=== PATIENT | female | born 1995 | race Caucasian/White ===

== ENCOUNTER 2016-07-22 08:35 | Emergency (ER) | payer OTHER, SELFPAY ==
[2016-07-22 08:46] VITALS: BP 119/83; O2SAT 99
[2016-07-22] MEDS ORDERED: TYLENOL 325 MG PO ONE (09:11)
[2016-07-22] MEDS ORDERED: TYLENOL 325 MG ONE (09:13)
--- NOTE | 2016-07-22 09:24 | ERPHSYRPT ---
- History of Present Illness Time Seen by Provider: 07/22/16 08:43 Source: patient Patient Subjective Stated Complaint: sore thraot/earache for 3 days Triage Nursing Assessment: c/o sore throat and earache (rt worse than lt) for past 3 days. questionable fever. red thraot noted. green draiange from rt ears. took left over amoxicillin Physician History: CC: sore throat Hx: 21 y/o healthy pt with no local doctor. She has 3 day hx of sore throat, ear pressure, rhinorrhea. Mild cough. Had some green drng from right ear last night. No fever or chills. States not . Took 3 days of left over amoxil and has not gotten better so came to ER. Timing/Duration: day(s) (3) Cough Quality/Degree: mild Allergies/Adverse Reactions: No Known Drug Allergies Allergy (Unverified 07/22/16 08:46) Home Medications: No Home Meds 1 ea UD 07/22/16 [History] Hx Tetanus, Diphtheria Vaccination/Date Given: Yes Hx Influenza Vaccination/Date Given: No Hx Pneumococcal Vaccination/Date Given: No Immunizations Up to Date: Yes - Review of Systems Constitutional: Malaise, No Fever, No Chills Eyes: No Symptoms Ears, Nose, & Throat: Ear Pain, Ear Discharge, Nose Congestion, Throat Pain Respiratory: Cough Abdominal/Gastrointestinal: No Vomiting, No Diarrhea Skin: No Rash - Past Medical History Pertinent Past Medical History: No - Past Surgical History Past Surgical History: No - Social History Smoking Status: Never smoker Exposure to second hand smoke: Yes Drug Use: none Patient Lives Alone: No - Female History Hx Last Menstrual Period: 4 weeks Hx Now: No - Nursing Vital Signs Nursing Vital Signs: Initial Vital Signs Temperature 98.2 F Temperature Source Oral Pulse Rate 90 Respiratory Rate 18 Blood Pressure [Right Arm] 119/83 Pain Intensity 8 - Physical Exam General Appearance: alert Eye Exam: PERRL/EOMI Ears, Nose, Throat Exam: TMs normal (normal landmarks, no erythema, no canal erythema, no pain with movement of the pinna), moist mucous membranes, pharyngeal erythema, No tonsillar exudate Neck Exam: normal inspection, non-tender, supple Respiratory Exam: normal breath sounds, lungs clear Cardiovascular Exam: regular rate/rhythm Gastrointestinal/Abdomen Exam: soft, No tenderness, No distention Back Exam: normal inspection, normal range of motion Extremity Exam: normal inspection, normal range of motion Neurologic Exam: alert, oriented x 3, cooperative Skin Exam: warm, dry, rash (bug bite arm) SpO2: 99 Oxygen Delivery: Room Air - Course Nursing assessment & vital signs reviewed: Yes Ordered Tests: Active Orders 24 hr Category Date Time Status PO Popsicle STAT Care 07/22/16 09:11 Active STREP SCREEN-BETA A Stat Lab 07/22/16 09:11 Completed Medication Summary Discontinued Medications Generic Name Dose Route Start Last Admin Trade Name Nika PRN Reason Stop Dose Admin Acetaminophen 650 mg 07/22/16 09:11 07/22/16 09:14 Tylenol 325 Mg PO 07/22/16 09:12 650 mg STAT ONE Administration Acetaminophen Confirm 07/22/16 09:13 Tylenol 325 Mg Administered 07/22/16 09:14 Dose 650 mg .ROUTE .STK-MED ONE Lab/Rad Data: Laboratory Results 07/22/16 Range/Units 09:11 Streptococcus Screen POSITIVE (Negative) - Progress Progress Note: 07/22/16 09:24 Discussed empiric abtx vs strep test and only treating if positive. The appears to be viral URI. 07/22/16 09:46 Strep positive. Will Rx amoxil. She declines injection. Symptom treatment encouraged. Counseled pt/family regarding: lab results, diagnosis, need for follow-up - Departure Time of Disposition: 09:47 Departure Disposition: Home Clinical Impression: Strep pharyngitis Condition: Stable Critical Care Time: No Referrals: DOCTOR,NO FAMILY [Primary Care Provider] - Instructions: Strep Throat Additional Instructions: SORE THROAT 1. If you are prescribed antibiotics, you should finish the entire prescription as directed. 2. Many sore throats are caused by viruses and antibiotics will not help. 3. Acetaminophen or Ibuprofen as directed for fever or discomfort. 4. Cool liquids may help the pain of sore throat. Rx amoxil until gone. Prescriptions: Amoxicillin [Amoxil] 1 cap PO TID #30 capsule
[2016-07-22 09:53] VITALS: PULSE 84
== END 2016-07-22 09:50 | disposition home or self-care (01) ==
LOC: ED 08:35
DX: J02.0 Streptococcal pharyngitis (principal)
CPT/HCPCS: 87430; 99283; A9270-GY

== ENCOUNTER 2017-02-01 09:36 | Emergency (ER) | payer OTHER, SELFPAY ==
[2017-02-01 09:51] VITALS: O2SAT 97
--- NOTE | 2017-02-01 10:27 | ERPHSYRPT ---
- History of Present Illness Time Seen by Provider: 02/01/17 10:08 Source: patient Exam Limitations: no limitations Patient Subjective Stated Complaint: sore throat and both ears aching for two days Triage Nursing Assessment: to room per self. skin w/d, color normal. mouth moist. denies fever. Physician History: The patient is a 22-year-old female with her grandmother complaining of a sore throat and ear aches for one to 2 days. She denies fever or chills. She denies cough. She denies a stuffy nose or nasal congestion. Timing/Duration: gradual onset Severity: mild ENT Location: ear (R), ear (L), throat Prearrival Treatment: no prearrival treatment Modifying Factors: Improves With: nothing Associated Symptoms: ear pain (R), ear pain (L), sore throat, No cough, No nasal congestion/drainage, No ringing of ears Allergies/Adverse Reactions: No Known Drug Allergies Allergy (Verified 02/01/17 09:48) Home Medications: No Home Meds [No Home Meds] 1 [facility] UD 07/22/16 [History] Hx Tetanus, Diphtheria Vaccination/Date Given: No Hx Influenza Vaccination/Date Given: No Hx Pneumococcal Vaccination/Date Given: No - Review of Systems Constitutional: No Fever, No Chills Eyes: No Symptoms Ears, Nose, & Throat: Ear Pain, Throat Pain, No Nose Discharge, No Hoarse Respiratory: No Cough, No Dyspnea Cardiac: No Chest Pain, No Edema, No Syncope Abdominal/Gastrointestinal: No Abdominal Pain, No Nausea, No Vomiting, No Diarrhea Genitourinary Symptoms: No Dysuria Musculoskeletal: No Back Pain, No Neck Pain Skin: No Rash Neurological: No Dizziness, No Focal Weakness, No Sensory Changes Psychological: No Symptoms Endocrine: No Symptoms Hematologic/Lymphatic: No Symptoms Immunological/Allergic: No Symptoms All Other Systems: Reviewed and Negative - Past Medical History Pertinent Past Medical History: No - Past Surgical History Past Surgical History: No - Social History Smoking Status: Never smoker Exposure to second hand smoke: Yes Drug Use: none Patient Lives Alone: No - Female History Hx Last Menstrual Period: 01/01/17 Hx Now: No - Nursing Vital Signs Nursing Vital Signs: Initial Vital Signs Temperature 98.5 F 02/01/17 09:44 Pulse Rate 85 02/01/17 09:44 Respiratory Rate 16 11/07/17 09:44 Blood Pressure 144/71 02/01/17 09:44 O2 Sat by Pulse Oximetry 97 02/01/17 09:44 Pain Scale Pain Intensity 8 - Physical Exam General Appearance: no apparent distress, alert Eye Exam: bilateral eye: normal inspection, PERRL Ear Exam: bilateral ear: auricle normal, canal normal, TM normal Nasal Exam: normal inspection Throat Exam: pharynx normal, moist mucus membranes, No tonsillar exudate, No tonsillar swelling Neck Exam: supple Cardiovascular/Respiratory Exam: normal breath sounds, regular rate/rhythm Abdominal Exam: non-tender, soft Neurologic Exam: alert, oriented x 3, sensation nml, No motor deficits Skin Exam: normal color, warm, dry SpO2 Interpretation: normal SpO2: 97 Oxygen Delivery: Room Air Ordered Tests: Active Orders 24 hr Category Date Time Status STREP SCREEN-BETA A Stat Lab 02/01/17 09:58 Received - Departure Time of Disposition: 10:28 Departure Disposition: Home Clinical Impression: Pharyngitis Condition: Stable Critical Care Time: No Referrals: DOCTOR,NO FAMILY [Primary Care Provider] - Additional Instructions: You have a sore throat. The rapid strep test was negative today in the ER. If the secondary test for strep comes back positive in 2 days, we will contact you. Take Tylenol and ibuprofen as needed for pain. Gargle with warm salt water as often as needed. Follow-up as needed.
[2017-02-01 10:37] VITALS: BP 135/89; PULSE 82
== END 2017-02-01 10:42 | disposition home or self-care (01) ==
LOC: ED 09:36
DX: J02.9 Acute pharyngitis, unspecified (principal); H92.03 Otalgia, bilateral
CPT/HCPCS: 87070; 87430; 99283

== ENCOUNTER 2018-01-15 23:51 | Emergency (ER) | payer OTHER ==
[2018-01-16 00:07] VITALS: BP 155/95; PULSE 95; O2SAT 99
--- NOTE | 2018-01-16 00:13 | ERPHSYRPT ---
- History of Present Illness Time Seen by Provider: 01/16/18 00:12 Patient Subjective Stated Complaint: PT IS ALERT AND ORIENTED. PT IS AMBULATORY WITH A STEADY GAIT. PT STATES THAT SHE WAS MOVING AND TWISTED HER LEFT ANKLE DOWN A STEP. ANKLE IS SLIGHTLY PUFFY. SOME PURPLE DISCOLORATION NOTED. TENDER TO TOUCH ON TOP OF FOOT, INSIDE AND OUTSIDE OF ANKLE. NO LOSS OF SENSATION, PT DENIES NUMBNESS OF TINGLING. Triage Nursing Assessment: SEE ABOVE Physician History: 23 y/o white female presents with left ankle injury while moving furniture. pt can ambulate on it. no fall or head injury Method of Injury: twisted Occurred: this afternoon Quality: aching Severity of Pain-Max: mild Severity of Pain-Current: mild Lower Extremities Pain: foot: left, ankle: left Modifying Factors: Improves With: movement (walking on it) Allergies/Adverse Reactions: No Known Drug Allergies Allergy (Verified 02/01/17 09:48) Home Medications: No Home Meds [No Home Meds] 1 ea [place] 07/22/16 [History] Hx Tetanus, Diphtheria Vaccination/Date Given: Yes Hx Influenza Vaccination/Date Given: No Hx Pneumococcal Vaccination/Date Given: No Immunizations Up to Date: Yes - Review of Systems Constitutional: No Symptoms Eyes: No Symptoms Ears, Nose, & Throat: No Symptoms Respiratory: No Symptoms Cardiac: No Symptoms Abdominal/Gastrointestinal: No Symptoms Genitourinary Symptoms: No Symptoms Musculoskeletal: Fall, Injury (twisted left foot and ankle) Skin: No Symptoms Neurological: No Symptoms Psychological: No Symptoms Endocrine: No Symptoms Hematologic/Lymphatic: No Symptoms Immunological/Allergic: No Symptoms All Other Systems: Reviewed and Negative - Past Medical History Pertinent Past Medical History: No Neurological History: No Pertinent History ENT History: No Pertinent History Cardiac History: No Pertinent History Respiratory History: No Pertinent History Endocrine Medical History: No Pertinent History Musculoskeletal History: No Pertinent History GI Medical History: No Pertinent History History: No Pertinent History Psycho-Social History: No Pertinent History Female Reproductive Disorders: No Pertinent History - Past Surgical History Past Surgical History: No Neuro Surgical History: No Pertinent History Cardiac: No Pertinent History Respiratory: No Pertinent History Gastrointestinal: No Pertinent History Genitourinary: No Pertinent History Musculoskeletal: No Pertinent History Female Surgical History: No Pertinent History - Social History Smoking Status: Never smoker Exposure to second hand smoke: No Drug Use: none Patient Lives Alone: No - Female History Hx Now: No - Nursing Vital Signs Nursing Vital Signs: Initial Vital Signs Pulse Rate 95 H 01/15/18 23:52 Blood Pressure 155/95 01/15/18 23:52 O2 Sat by Pulse Oximetry 99 01/15/18 23:52 Pain Scale Pain Intensity 8 - Physical Exam General Appearance: no apparent distress, alert, anxiety Eyes, Ears, Nose, Throat Exam: normal ENT inspection, moist mucous membranes Neck Exam: normal inspection, non-tender, supple, full range of motion Cardiovascular/Respiratory Exam: chest non-tender, normal breath sounds, regular rate/rhythm, heart sounds normal, no respiratory distress Gastrointestinal/Abdominal Exam: non-tender, soft, no organomegaly, No guarding , No tenderness Back Exam: normal inspection Hips Exam: bilateral: non-tender, normal inspection, normal range of motion Legs Exam: bilateral leg: non-tender, normal inspection, normal range of motion Knees Exam: bilateral knee: non-tender, normal inspection, normal range of motion Ankle Exam: right ankle: non-tender, normal inspection, normal range of motion, no evidence of injury, left ankle: soft tissue tenderness, swelling Foot Exam: right foot: non-tender, normal inspection, normal range of motion, no evidence of injury, left foot: soft tissue tenderness, swelling Neuro/Tendon Exam: normal sensation, normal motor functions, normal tendon functions Mental Status Exam: alert, oriented x 3, cooperative Skin Exam: normal color, warm, dry SpO2 Interpretation: normal SpO2: 99 Oxygen Delivery: Room Air - Course Nursing assessment & vital signs reviewed: Yes Ordered Tests: Active Orders 24 hr Category Date Time Status Jim Bandage Application -[facility] STAT Care 01/16/18 00:49 Active ANKLE (3 VIEWS) Stat Exams 01/16/18 00:13 Taken FOOT (MINIMUM 3 VIEWS) Stat Exams 01/16/18 00:23 Taken Lab/Rad Data: left ankle and foot xray-no acute fx or dislocation - Progress Progress: unchanged Counseled pt/family regarding: diagnosis, need for follow-up, rad results - Departure Time of Disposition: 01:14 Departure Disposition: Home Clinical Impression: Ankle sprain, Foot sprain Condition: Stable Critical Care Time: No Referrals: DOCTOR,NO FAMILY [Primary Care Provider] - Additional Instructions: wear jim bandage for comfort. ice pack 3 times a day for 2 days. use tylenol and ibuprofen for pain.
--- NOTE | 2018-01-16 09:06 | XRAY ---
Indication: Pain following injury. Comparison: None 3 views of the left ankle obtained. No bony, articular, or soft tissue abnormalities.
--- NOTE | 2018-01-16 09:08 | XRAY ---
Indication: Pain following injury. Comparison: None 3 nonweightbearing views of the left foot obtained. No bony, articular, or soft tissue abnormalities.
== END 2018-01-16 01:34 | disposition home or self-care (01) ==
LOC: ED 23:51
DX: S93.492A Sprain of other ligament of left ankle, initial encounter (principal); S93.602A Unspecified sprain of left foot, initial encounter; X50.1XXA Overexertion from prolonged static or awkward postures, initial encounter; Y93.89 Activity, other specified; Y92.9 Unspecified place or not applicable
CPT/HCPCS: 73610; 73630; 99283

== ENCOUNTER 2019-05-14 08:51 | Day surgery (SDC) | payer OTHER ==
--- NOTE | 2019-05-14 08:15 | HP ---
DATE OF SURGERY: 05/14/2019 HISTORY OF PRESENT ILLNESS: The patient is a 24 year-old with right upper quadrant epigastric pain, occasional nausea. No vomiting. Bowel movements loose. No specific food triggers. No prior surgery. Ultrasound slight thickening but no stones. She ended up having a HIDA scan show 13% consistent with low ejection fraction. PAST MEDICAL HISTORY: Some reflux. Headaches in the past. PAST SURGICAL HISTORY: No prior abdominal surgeries. MEDICATIONS: Omeprazole, cough medication, Topamax recently. ALLERGIES: NKDA. FAMILY HISTORY: Cancer. Diabetes. SOCIAL HISTORY: No smoking or alcohol abuse. REVIEW OF SYSTEMS: Fourteen systems reviewed. No chest pain or palpitations other systems negative or noncontributory as above and per preadmission questionnaire. PHYSICAL EXAMINATION: GENERAL: No acute distress. HEENT: Sclerae nonicteric. NECK: No JVD. CHEST: Clear to auscultation, equal excursion, nonlabored breathing. CVS: Regular rate and rhythm. ABDOMEN: Soft, some mild tenderness right upper quadrant epigastrium. No peritoneal signs. EXTREMITIES: No significant edema. NEURO: Alert, oriented, moving extremities symmetrically. No gross motor deficits noted. IMPRESSION: Right upper quadrant epigastric pain, occasional nausea, abnormal HIDA scan consistent with symptomatic biliary dyskinesia probable chronic cholecystitis. I feel the patient will benefit from cholecystectomy. Risks and benefits explained in detail including but not limited to bleeding or infection, risk of trocar injury or hernia, small risk of bowel, bladder or blood vessel injury, small risk of bile leak, bile duct injury, retained stone or sludge possibly requiring further procedure either open or ERCP, general risk of anesthesia, deep venous thrombosis, pulmonary embolism, pneumonia, perioperative risk of aches, pains, bloating, constipation and/or loose stools possibly chronic in nature, possibility that the procedure may not improve her symptoms. She may need further work up and/or testing, endoscopy, other studies or procedures. She understands and agrees to the planned procedure, will proceed with laparoscopic cholecystectomy with possible open as an outpatient.
[~2019-05-14 08:51] MED LIST: Lactated Ringers 1,000 ML IV ONE; Lactated Ringers 1,000 ML IV SCH; MEFOXIN 2 GM PREMIX** 2 GM/50 ML ML IV SCH; Sensorcaine 0.25% 10 ML ONE
[2019-05-14] MEDS ORDERED: Lactated Ringers 1,000 ML IV ONE (09:46)
[2019-05-14] MEDS ORDERED: MEFOXIN 2 GM PREMIX** 2 GM/50 ML ML IV ONE (09:46)
[2019-05-14] MEDS ORDERED: Versed 2 MG/2 ML Injection ONE (10:25)
[2019-05-14] MEDS ORDERED: Zemuron 100 MG/10 ML ONE ×2 (10:42→11:15)
[2019-05-14] MEDS ORDERED: DIPRIVAN 200 MG/20 ML IV ONE (10:42)
[2019-05-14] MEDS ORDERED: SUBLIMAZE 250 MCG/5 ML ONE (10:43)
[2019-05-14] MEDS ORDERED: Decadron 4 MG INJ ONE (10:46)
[2019-05-14] MEDS ORDERED: Zofran 4 MG/2 ML VIAL ONE ×2 (11:02→12:40)
[2019-05-14] MEDS ORDERED: BRIDION 200MG/2ML IV ONE (11:02)
[2019-05-14] MEDS ORDERED: ULTRAM 50 MG PO ONE (12:27)
[2019-05-14] MEDS ORDERED: Zofran 4 MG/2 ML VIAL IV STA (12:39)
[2019-05-14 13:52] VITALS: O2SAT 97
--- NOTE | 2019-05-14 13:58 | OP ---
SURGERY DATE/TIME: 05/14/2019 1043 PREOPERATIVE DIAGNOSIS: Symptomatic biliary dyskinesia, chronic cholecystitis. POSTOPERATIVE DIAGNOSIS: Symptomatic biliary dyskinesia, chronic cholecystitis. PROCEDURE: Laparoscopic cholecystectomy. SURGEON: Dr. Juice Reza. ANESTHESIA: General. ESTIMATED BLOOD LOSS: Minimal. INDICATIONS: As noted above. Risks and benefits explained in detail but not limited to and consent obtained. DESCRIPTION OF PROCEDURE AND FINDINGS: The patient was taken to the operating room. General anesthesia induced. Abdomen prepped and draped in the usual sterile fashion. After official time out and no disagreement with planned procedure, a transverse incision made at the supraumbilical area. Fascia grasped and pulled upward. Veress needle inserted and tested with saline. Pneumoperitoneum accomplished insufflating opening pressure of 0-15. A 5 mm bladeless port and camera inserted without difficulty followed by two - 5 mm right upper quadrant ports and 11 mm epigastric port. The gallbladder grasped retracted over the edge of the liver. Given her obesity, it took some time but slowly and carefully the friable fatty tissue dissected posterior, lateral to anterior fashion. Slowly and carefully cystic duct and infundibular junction with main cystic artery isolated until the critical view obtained both anteriorly and posteriorly. Once this was accomplished cystic duct and cystic artery clipped x3 and divided in the usual fashion. Gallbladder slowly and carefully dissected free from its dense attachment to liver bed staying directly on the gallbladder wall clipping additional oozing side branch off the cystic artery directly on the gallbladder wall as necessary. Just prior to releasing from final attachments to the anterior edge of the liver, one of the retractors tore a small pinhole in the gallbladder spilling a small amount of bile. There was no evidence of any sludge or stone spillage. It was suctioned clear as possible. Gallbladder is continued to be dissected free from its dense attachment to the liver bed. Just prior to releasing from final attachments to the anterior edge of the liver, liver bed re-inspected. Clips noted to be in placed in cystic duct and cystic artery stumps. No signs of any active bleeding or bile leakage. It was felt there was no benefit in drain placement. Gallbladder released from final attachments to anterior edge of the liver, put in a bag provided by the hospital, pulled up where it was necessary to use a clamp to slightly enlarge the fascial defect to pull it free and pass it off. Copious amount of irrigation accomplished lateral to the liver and subhepatic space irrigating until clear. Liver bed re-inspected. Clips noted in place in cystic duct and cystic artery stumps. No signs of any active bleeding or bile leakage. It was felt there is no benefit from drain placement. Fascial defect 01/05 site closed with puncture closure device with #1 Vicryl. Pneumoperitoneum decompressed. The wound irrigated out. Skin incision closed with 4-0 Vicryl. Steri-Strips and sterile dressing applied. 0.25% Marcaine local injected along the skin incision fascial defect. The patient tolerated the procedure well. There were no immediate complications. Findings discussed with the family out in the waiting area. She was transferred to the recovery room in stable condition.
[2019-05-14 13:59] VITALS: BP 130/76; PULSE 77
== END 2019-05-14 14:05 | disposition home or self-care (01) ==
LOC: SDC 08:51
PROVIDERS: ATTEND Surgery
DX: K81.1 Chronic cholecystitis (principal); K82.8 Other specified diseases of gallbladder
CPT/HCPCS: 84703; 88304; J0694; J1100; J2250; J2405; J2704; J3010; A9270-GY

== ENCOUNTER 2019-08-05 09:01 | Emergency (ER) | payer OTHER ==
--- NOTE | 2019-08-05 09:31 | ERPHSYRPT ---
- History of Present Illness Time Seen by Provider: 08/05/19 09:27 Source: patient Exam Limitations: no limitations Physician History: Facial pain, nasal DC, cough, [place] X 2 weeks. Has been treart=estela with steroids w/ o benefit. Has had no ATB. Timing/Duration: week(s) (2) Cough Quality/Degree: mild, productive cough Possible Cause: occasional episodes Modifying Factors: Improves With: activity Associated Symptoms: cough, facial pain, headache, nasal congestion, nasal drainage, sore throat Allergies/Adverse Reactions: hydrocodone [From [place]] Adverse Reaction (Intermediate, Verified 08/05/19 09:31 ) Nausea and Vomiting Hx Tetanus, Diphtheria Vaccination/Date Given: Yes Hx Influenza Vaccination/Date Given: No Hx Pneumococcal Vaccination/Date Given: No - Review of Systems Constitutional: No Fever, No Chills Eyes: No Symptoms Ears, Nose, & Throat: Nose Congestion, Nose Discharge, Sinus Drainage, Throat Pain Respiratory: Cough, No Dyspnea Cardiac: No Chest Pain, No Edema, No Syncope Abdominal/Gastrointestinal: No Abdominal Pain, No Nausea, No Vomiting, No Diarrhea Genitourinary Symptoms: No Dysuria Musculoskeletal: No Back Pain, No Neck Pain Skin: No Rash Neurological: Headache, No Dizziness, No Focal Weakness, No Sensory Changes Psychological: No Symptoms Endocrine: No Symptoms All Other Systems: Reviewed and Negative - Past Medical History Pertinent Past Medical History: Yes Neurological History: Migraines ENT History: No Pertinent History Cardiac History: No Pertinent History Respiratory History: No Pertinent History Endocrine Medical History: No Pertinent History Musculoskeletal History: No Pertinent History GI Medical History: GERD, Gallbladder Disease History: No Pertinent History Psycho-Social History: No Pertinent History Female Reproductive Disorders: No Pertinent History Other Medical History: iron def anemia - Past Surgical History Past Surgical History: No Neuro Surgical History: No Pertinent History Cardiac: No Pertinent History Respiratory: No Pertinent History Gastrointestinal: No Pertinent History Genitourinary: No Pertinent History Musculoskeletal: No Pertinent History Female Surgical History: No Pertinent History - Social History Smoking Status: Never smoker Exposure to second hand smoke: No Drug Use: none Patient Lives Alone: No - Nursing Vital Signs Nursing Vital Signs: Initial Vital Signs Temperature 98.1 F 08/05/19 09:06 Pulse Rate 102 H 08/05/19 09:06 Respiratory Rate 20 08/05/19 09:06 Blood Pressure 143/94 08/05/19 09:06 O2 Sat by Pulse Oximetry 100 08/05/19 09:06 Pain Scale Pain Intensity 8 - Physical Exam General Appearance: mild distress, alert Eye Exam: PERRL/EOMI, eyes nml inspection Ears, Nose, Throat Exam: TMs normal, moist mucous membranes, pharyngeal erythema Neck Exam: normal inspection, non-tender, supple, full range of motion Respiratory Exam: normal breath sounds, lungs clear, No respiratory distress Cardiovascular Exam: regular rate/rhythm, normal heart sounds Gastrointestinal/Abdomen Exam: soft, No tenderness Back Exam: normal inspection, No CVA tenderness, No vertebral tenderness Extremity Exam: normal inspection, normal range of motion Neurologic Exam: alert, oriented x 3, cooperative, normal mood/affect, sensation nml, No motor deficits Skin Exam: normal color, warm, dry, No rash Lymphatic Exam: No adenopathy - Course Nursing assessment & vital signs reviewed: Yes Ordered Tests: Medication Summary Generic Name Dose Route Start Last Admin Trade Name Freq PRN Reason Stop Dose Admin Ketorolac Tromethamine 30 mg 08/05/19 09:33 Toradol 30 Mg Injection IM 08/05/19 09:34 STAT ONE - Progress Progress: unchanged Air Movement: good Blood Culture(s) Obtained: No Antibiotics given: Yes - Departure Departure Disposition: Home Clinical Impression: Bacterial sinusitis Condition: Good Critical Care Time: No Referrals: MAHNAZ SUAREZ MD [Primary Care Provider] - Prescriptions: Cephalexin Mh 500 mg [Keflex 500 mg] 500 mg PO TID #21 capsule
[2019-08-05] MEDS ORDERED: TORAdol 30 mg Injection IM ONE (09:33)
[2019-08-05] MEDS ORDERED: TORAdol 30 mg Injection ONE (09:37)
[2019-08-05 09:57] VITALS: BP 119/86; PULSE 89; O2SAT 99
== END 2019-08-05 09:55 | disposition home or self-care (01) ==
LOC: ED 09:01
DX: J01.90 Acute sinusitis, unspecified (principal)
CPT/HCPCS: 96372; 99283; J1885

== ENCOUNTER 2021-05-04 21:28 | Emergency (ER) | payer OTHER ==
[2021-05-04] MEDS ORDERED: Sodium Chloride 0.9% 1000 ML 1,000 ML ONE (22:43)
[2021-05-04] MEDS ORDERED: Sodium Chloride 0.9% 1000 ML 1,000 ML IV SCH (22:45)
[2021-05-04 22:52] LABS: Absolute Neutrophil Ct (ANC) 6.46 (1.4-6.9); Basophil (Absolute #) 0.02 (0-0.4); Eosinophil % 2.1 % (0.00-5.0); Eosinophil (Absolute #) 0.24 (0-0.5); Hematocrit 41.8 % (35-47); Hemoglobin 13.9 gm/dl (12.0-16.0); Lymphocyte (Absolute #) 3.83 (1.0-4.6); Lymphocytes % 33.5 % (24.0-44.0); Mean Cell Volume 84.4 fl (78-100); Mean Corpuscular Hemoglobin 28.1 pg (26-32); Mean Corpuscular Hgb Concent. 33.3 g/dl (32-36); Mean Platelet Volume 12.1 fl (7.5-11.0); Monocyte (Absolute #) 0.87 (0.0-1.3); Monocytes % 7.6 % (0.0-12.0); Neutrophil % 56.6 % (36.0-66.0); Platelet Count 219 K/mm3 (150-450); Red Blood Count 4.95 M/mm3 (4.1-5.4); Red Cell Distribution Width 13.2 % (11.5-14.0); White Blood Count 11.4 K/mm3 (4.0-10.5)
[2021-05-04 23:05] LABS: ALBUMIN 4.4 g/dL (3.5-5.0); ALKALINE PHOSPHATASE 94 U/L (38-126); ANION GAP 15.5 MEQ/L (5-15); Appearance CLOUDY (CLEAR); BLOOD UREA NITROGEN 16 mg/dL (7-17); Bacteria RARE /HPF (NEGATIVE); Bilirubin NEGATIVE (NEGATIVE); Blood NEGATIVE Ery/ul (0-5); CHLORIDE 106 mmol/L (98-107); Calcium 9.7 mg/dL (8.4-10.2); Calcium Oxalate Crystals 26-50 /HPF (NEGATIVE); Carbon Dioxide 25 mmol/L (22-30); Creatinine 1 1.05 mg/dL (0.52-1.04); EST GLOMERULAR FILTRATION RATE > 60.0 ML/MIN; Epithelial Cells FEW /HPF (FEW); Glucose 107 mg/dL (74-106); Glucose NEGATIVE (NEGATIVE); Ketones NEGATIVE (NEGATIVE); LIPASE 98 U/L (23-300); Leukocyte Esterase NEGATIVE (NEGATIVE); Mucus SLIGHT /HPF (NEGATIVE); Nitrite NEGATIVE (NEGATIVE); Protein,Urine Dip 30 (Negative); RBC 0-2 /HPF (0-2); SGOT/AST 29 U/L (14-36); SGPT/ALT 21 U/L (0-35); SODIUM 142 mmol/L (137-145); Specific Gravity 1.034 (1.005-1.025); Total Protein 7.6 g/dL (6.3-8.2); Urobilinogen NEGATIVE mg/dL (0-1)
--- NOTE | 2021-05-04 23:34 | ERPHSYRPT ---
- History of Present Illness Patient Subjective Stated Complaint: pt states she has been having lt side upper abd pain since approx 1200. states pain goes down around lt side and to back. describes apin as sharp Triage Nursing Assessment: pt alert and oriented, answers questions approp. pt ambulatory with steady gait noted. respirations nonlabored. abd soft and nontender to light palpation. bowel sounds present x4. skin pink warm and dry Allergies/Adverse Reactions: hydrocodone [From [place]] Adverse Reaction (Intermediate, Verified 05/04/21 21:56) Nausea and Vomiting Home Medications: Iron,Carbonyl [Feosol] 65 mg PO DAILY 08/05/19 [History] Loratadine 10 mg PO DAILY 08/05/19 [History] Metformin HCl 500 mg [Glucophage 500 MG] 500 mg PO DAILY 08/05/19 [History] Phentermine HCl 37.5 mg PO DAILY 08/05/19 [History] Pseudoephedrine HCl 60 mg PO Q4-6HPRN PRN 08/05/19 [History] SUMAtriptan succinate [Sumatriptan Succinate] 25 mg PO UD 08/05/19 [History] Topiramate 25 mg PO BID 08/05/19 [History] buPROPion HCL [Bupropion Xl] 150 mg PO DAILY 08/05/19 [History] Hx Tetanus, Diphtheria Vaccination/Date Given: Yes Hx Influenza Vaccination/Date Given: Yes Hx Pneumococcal Vaccination/Date Given: No Immunizations Up to Date: Yes Travel Risk - International Travel Have you traveled outside of the country in past 3 weeks: No - Coronavirus Screening Are you exhibiting any of the following symptoms?: No Close contact with a COVID-19 positive Pt in past 14-21 Days: No - Vaccine Status Have you recieved a Covid-19 vaccination: No - Past Medical History Pertinent Past Medical History: Yes Neurological History: Migraines ENT History: No Pertinent History Cardiac History: No Pertinent History Respiratory History: No Pertinent History Endocrine Medical History: Diabetes Type II Musculoskeletal History: No Pertinent History GI Medical History: GERD, Gallbladder Disease History: No Pertinent History Psycho-Social History: No Pertinent History Female Reproductive Disorders: No Pertinent History Other Medical History: iron def anemia - Past Surgical History Past Surgical History: Yes Neuro Surgical History: No Pertinent History Cardiac: No Pertinent History Respiratory: No Pertinent History Gastrointestinal: Cholecystectomy Genitourinary: No Pertinent History Musculoskeletal: No Pertinent History Female Surgical History: No Pertinent History - Social History Smoking Status: Never smoker Exposure to second hand smoke: No Drug Use: none Patient Lives Alone: No - Female History Hx Last Menstrual Period: 2 weeks Hx Now: No (home test negative) - Nursing Vital Signs Nursing Vital Signs: Initial Vital Signs Temperature 98.0 F 05/04/21 21:33 Pulse Rate 97 H 05/04/21 21:33 Respiratory Rate 20 05/04/21 21:33 Blood Pressure 143/104 05/04/21 21:33 O2 Sat by Pulse Oximetry 98 05/04/21 21:33 Pain Scale Pain Intensity 7 - Physical Exam SpO2: 98 Ordered Tests: Active Orders 24 hr Category Date Time Status EKG-ER Only STAT Care 05/04/21 22:39 Active IV Insertion STAT Care 05/04/21 22:39 Active ABDOMEN AND PELVIS W CONTRAST [CT] Stat Exams 05/04/21 22:39 Taken CBC W DIFF Stat Lab 05/04/21 22:43 Completed CMP Stat Lab 05/04/21 22:43 Completed LIPASE Stat Lab 05/04/21 22:43 Completed TROPONIN Q3H Lab 05/04/21 22:43 Completed TROPONIN Q3H Lab 05/05/21 01:45 Ordered TROPONIN Q3H Lab 05/05/21 04:45 Ordered TROPONIN Q3H Lab 05/05/21 07:45 Ordered TROPONIN Q3H Lab 05/05/21 10:45 Ordered UA W/RFX UR CULTURE Stat Lab 05/04/21 22:43 Completed Medication Summary Generic Name Dose Route Start Last Admin Trade Name Freq PRN Reason Stop Dose Admin Sodium Chloride 1,000 mls @ 100 mls/hr 05/04/21 22:45 05/04/21 22:44 Sodium Chloride 0.9% 1000 Ml IV 06/03/21 22:44 100 mls/hr .Q10H JAYME Administration Lab/Rad Data: Laboratory Result Diagrams 05/04/21 22:43 05/04/21 22:43 Laboratory Results 05/04/21 05/04/21 05/04/21 Range/Units 22:43 22:43 22:43 WBC 11.4 H (4.0-10.5) K/mm3 RBC 4.95 (4.1-5.4) M/mm3 Hgb 13.9 (12.0-16.0) gm/dl Hct 41.8 (35-47) % MCV 84.4 (78-100) fl MCH 28.1 (26-32) pg MCHC 33.3 (32-36) g/dl RDW 13.2 (11.5-14.0) % Plt Count 219 (150-450) K/mm3 MPV 12.1 H (7.5-11.0) fl Gran % 56.6 (36.0-66.0) % Eos # (Auto) 0.24 (0-0.5) Absolute Lymphs (auto) 3.83 (1.0-4.6) Absolute Monos (auto) 0.87 (0.0-1.3) Lymphocytes % 33.5 (24.0-44.0) % Monocytes % 7.6 (0.0-12.0) % Eosinophils % 2.1 (0.00-5.0) % Basophils % 0.2 (0.0-0.4) % Absolute Granulocytes 6.46 (1.4-6.9) Basophils # 0.02 (0-0.4) Sodium 142 (137-145) mmol/L Potassium 4.0 (3.5-5.1) mmol/L Chloride 106 (98-107) mmol/L Carbon Dioxide 25 (22-30) mmol/L Anion Gap 15.5 H (5-15) MEQ/L BUN 16 (7-17) mg/dL Creatinine 1.05 H (0.52-1.04) mg/dL Estimated GFR > 60.0 ML/MIN Glucose 107 H (74-106) mg/dL Calcium 9.7 (8.4-10.2) mg/dL Total Bilirubin 0.50 (0.2-1.3) mg/dL AST 29 (14-36) U/L ALT 21 (0-35) U/L Alkaline Phosphatase 94 (38-126) U/L Troponin I < 0.012 (0.000-0.034) ng/mL Serum Total Protein 7.6 (6.3-8.2) g/dL Albumin 4.4 (3.5-5.0) g/dL Lipase 98 (23-300) U/L Urine Color (YELLOW) Urine Appearance (CLEAR) Urine pH (5-6) Ur Specific [place] (1.005-1.025) Urine Protein (Negative) Urine Ketones (NEGATIVE) Urine Blood (0-5) Aki/ul Urine Nitrite (NEGATIVE) Urine Bilirubin (NEGATIVE) Urine Urobilinogen (0-1) mg/dL Ur Leukocyte Esterase (NEGATIVE) Urine WBC (Auto) (0-5) /HPF Urine RBC (Auto) (0-2) /HPF U Epithel Cells (Auto) (FEW) /HPF Urine Bacteria (Auto) (NEGATIVE) /HPF Calcium Oxalate Crystal (NEGATIVE) /HPF Urine Mucus (Auto) (NEGATIVE) /HPF Urine Culture Reflexed (NO) Urine Glucose (NEGATIVE) mg/dL 05/04/21 Range/Units 22:43 WBC (4.0-10.5) K/mm3 RBC (4.1-5.4) M/mm3 Hgb (12.0-16.0) gm/dl Hct (35-47) % MCV (78-100) fl MCH (26-32) pg MCHC (32-36) g/dl RDW (11.5-14.0) % Plt Count (150-450) K/mm3 MPV (7.5-11.0) fl Gran % (36.0-66.0) % Eos # (Auto) (0-0.5) Absolute Lymphs (auto) (1.0-4.6) Absolute Monos (auto) (0.0-1.3) Lymphocytes % (24.0-44.0) % Monocytes % (0.0-12.0) % Eosinophils % (0.00-5.0) % Basophils % (0.0-0.4) % Absolute Granulocytes (1.4-6.9) Basophils # (0-0.4) Sodium (137-145) mmol/L Potassium (3.5-5.1) mmol/L Chloride (98-107) mmol/L Carbon Dioxide (22-30) mmol/L Anion Gap (5-15) MEQ/L BUN (7-17) mg/dL Creatinine (0.52-1.04) mg/dL Estimated GFR ML/MIN Glucose (74-106) mg/dL Calcium (8.4-10.2) mg/dL Total Bilirubin (0.2-1.3) mg/dL AST (14-36) U/L ALT (0-35) U/L Alkaline Phosphatase (38-126) U/L Troponin I (0.000-0.034) ng/mL Serum Total Protein (6.3-8.2) g/dL Albumin (3.5-5.0) g/dL Lipase (23-300) U/L Urine Color YELLOW (YELLOW) Urine Appearance CLOUDY (CLEAR) Urine pH 5.0 (5-6) Ur Specific [place] 1.034 (1.005-1.025) Urine Protein 30 (Negative) Urine Ketones NEGATIVE (NEGATIVE) Urine Blood NEGATIVE (0-5) Aki/ul Urine Nitrite NEGATIVE (NEGATIVE) Urine Bilirubin NEGATIVE (NEGATIVE) Urine Urobilinogen NEGATIVE (0-1) mg/dL Ur Leukocyte Esterase NEGATIVE (NEGATIVE) Urine WBC (Auto) NONE (0-5) /HPF Urine RBC (Auto) 0-2 (0-2) /HPF U Epithel Cells (Auto) FEW (FEW) /HPF Urine Bacteria (Auto) RARE (NEGATIVE) /HPF Calcium Oxalate Crystal 26-50 (NEGATIVE) /HPF Urine Mucus (Auto) SLIGHT (NEGATIVE) /HPF Urine Culture Reflexed NO (NO) Urine Glucose NEGATIVE (NEGATIVE) mg/dL - Departure Referrals: YURI VELARDE MD [Primary Care Provider] - Follow up/PCP as directed
--- NOTE | 2021-05-04 23:40 | ERPHSYRPT ---
- History of Present Illness Time Seen by Provider: 05/04/21 21:40 Historian: patient Exam Limitations: no limitations Patient Subjective Stated Complaint: pt states she has been having lt side upper abd pain since approx 1200. states pain goes down around lt side and to back. describes apin as sharp Triage Nursing Assessment: pt alert and oriented, answers questions approp. pt ambulatory with steady gait noted. respirations nonlabored. abd soft and nontender to light palpation. bowel sounds present x4. skin pink warm and dry Physician History: Patient is a 26-year-old female presents to our ED with complaints of left upper abdominal pain. Pain started today. Pain described as a dull ache that is worse when she moves. Pain tends to radiate towards her back. 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 Patient thinks that she may have injured herself at work. No active chest pain. No nausea or vomiting. No diarrhea. No rash. Symptoms are mild to moderate in intensity. Movement reproduces symptoms. Pain improved with rest. Patient declined pain medication. Patient otherwise generally healthy. She voices no other complaints or concerns at this time. Timing/Duration: today Activities at Onset: none Quality: aching Abdominal Pain Onset Location: LUQ Pain Radiation: back Severity of Pain-Max: moderate Severity of Pain-Current: mild Modifying Factors: Improves With: movement Associated Symptoms: denies symptoms Previous symptoms: no prior history Allergies/Adverse Reactions: hydrocodone [From [place]] Adverse Reaction (Intermediate, Verified 05/04/21 21:56) Nausea and Vomiting Home Medications: Iron,Carbonyl [Feosol] 65 mg PO DAILY 08/05/19 [History] Loratadine 10 mg PO DAILY 08/05/19 [History] Metformin HCl 500 mg [Glucophage 500 MG] 500 mg PO DAILY 08/05/19 [History] Phentermine HCl 37.5 mg PO DAILY 08/05/19 [History] Pseudoephedrine HCl 60 mg PO Q4-6HPRN PRN 08/05/19 [History] SUMAtriptan succinate [Sumatriptan Succinate] 25 mg PO UD 08/05/19 [History] Topiramate 25 mg PO BID 08/05/19 [History] buPROPion HCL [Bupropion Xl] 150 mg PO DAILY 08/05/19 [History] Hx Tetanus, Diphtheria Vaccination/Date Given: Yes Hx Influenza Vaccination/Date Given: Yes Hx Pneumococcal Vaccination/Date Given: No Immunizations Up to Date: Yes Travel Risk - International Travel Have you traveled outside of the country in past 3 weeks: No - Coronavirus Screening Are you exhibiting any of the following symptoms?: No Close contact with a COVID-19 positive Pt in past 14-21 Days: No - Vaccine Status Have you recieved a Covid-19 vaccination: No - Review of Systems Constitutional: No Symptoms, No Fever, No Chills Eyes: No Symptoms Ears, Nose, & Throat: No Symptoms Respiratory: No Symptoms, No Cough, No Dyspnea Cardiac: No Symptoms, No Chest Pain, No Edema, No Syncope Abdominal/Gastrointestinal: No Symptoms, No Abdominal Pain, No Nausea, No Vomiting, No Diarrhea Genitourinary Symptoms: No Symptoms, No Dysuria Musculoskeletal: No Symptoms, No Back Pain, No Neck Pain Skin: No Symptoms, No Rash Neurological: No Symptoms, No Dizziness, No Focal Weakness, No Sensory Changes Psychological: No Symptoms Endocrine: No Symptoms Hematologic/Lymphatic: No Symptoms Immunological/Allergic: No Symptoms All Other Systems: Reviewed and Negative - Past Medical History Pertinent Past Medical History: Yes Neurological History: Migraines ENT History: No Pertinent History Cardiac History: No Pertinent History Respiratory History: No Pertinent History Endocrine Medical History: Diabetes Type II Musculoskeletal History: No Pertinent History GI Medical History: GERD, Gallbladder Disease History: No Pertinent History Psycho-Social History: No Pertinent History Female Reproductive Disorders: No Pertinent History Other Medical History: iron def anemia - Past Surgical History Past Surgical History: Yes Neuro Surgical History: No Pertinent History Cardiac: No Pertinent History Respiratory: No Pertinent History Gastrointestinal: Cholecystectomy Genitourinary: No Pertinent History Musculoskeletal: No Pertinent History Female Surgical History: No Pertinent History - Social History Smoking Status: Never smoker Exposure to second hand smoke: No Drug Use: none Patient Lives Alone: No - Female History Hx Last Menstrual Period: 2 weeks Hx Now: No (home test negative) - Nursing Vital Signs Nursing Vital Signs: Initial Vital Signs Temperature 98.0 F 05/04/21 21:33 Pulse Rate 97 H 05/04/21 21:33 Respiratory Rate 20 05/04/21 21:33 Blood Pressure 143/104 05/04/21 21:33 O2 Sat by Pulse Oximetry 98 05/04/21 21:33 Pain Scale Pain Intensity 7 - Physical Exam General Appearance: no apparent distress, alert Eye Exam: PERRL/EOMI, eyes nml inspection Ears, Nose, Throat Exam: normal ENT inspection, pharynx normal, moist mucous membranes Neck Exam: normal inspection, non-tender, supple, full range of motion Respiratory Exam: normal breath sounds, lungs clear, airway intact, No respiratory distress Cardiovascular Exam: regular rate/rhythm, normal heart sounds, normal peripheral pulses Gastrointestinal/Abdomen Exam: soft, normal bowel sounds, No tenderness, No mass Back Exam: normal inspection, normal range of motion, No CVA tenderness, No vertebral tenderness Extremity Exam: normal inspection, normal range of motion, pelvis stable Neurologic Exam: alert, oriented x 3, cooperative, normal mood/affect, nml cerebellar function, sensation nml, No motor deficits Skin Exam: normal color, warm, dry Lymphatic Exam: No adenopathy SpO2 Interpretation: normal SpO2: 98 O2 Delivery: Room Air - Course Nursing assessment & vital signs reviewed: Yes - CT Exams Abdomen/Pelvis CT Interpretation: Tele-radiologist Report (No acute findings. Hepatic st eatosis.) Ordered Tests: Active Orders 24 hr Category Date Time Status EKG-ER Only STAT Care 05/04/21 22:39 Active IV Insertion STAT Care 05/04/21 22:39 Active ABDOMEN AND PELVIS W CONTRAST [CT] Stat Exams 05/04/21 22:39 Taken CBC W DIFF Stat Lab 05/04/21 22:43 Completed CMP Stat Lab 05/04/21 22:43 Completed LIPASE Stat Lab 05/04/21 22:43 Completed TROPONIN Q3H Lab 05/04/21 22:43 Completed TROPONIN Q3H Lab 05/05/21 01:45 Ordered TROPONIN Q3H Lab 05/05/21 04:45 Ordered TROPONIN Q3H Lab 05/05/21 07:45 Ordered TROPONIN Q3H Lab 05/05/21 10:45 Ordered UA W/RFX UR CULTURE Stat Lab 05/04/21 22:43 Completed Medication Summary Generic Name Dose Route Start Last Admin Trade Name Freq PRN Reason Stop Dose Admin Sodium Chloride 1,000 mls @ 100 mls/hr 05/04/21 22:45 05/04/21 22:44 Sodium Chloride 0.9% 1000 Ml IV 06/03/21 22:44 100 mls/hr .Q10H JAYME Administration Lab/Rad Data: Laboratory Result Diagrams 05/04/21 22:43 05/04/21 22:43 Laboratory Results 05/04/21 05/04/21 05/04/21 Range/Units 22:43 22:43 22:43 WBC 11.4 H (4.0-10.5) K/mm3 RBC 4.95 (4.1-5.4) M/mm3 Hgb 13.9 (12.0-16.0) gm/dl Hct 41.8 (35-47) % MCV 84.4 (78-100) fl MCH 28.1 (26-32) pg MCHC 33.3 (32-36) g/dl RDW 13.2 (11.5-14.0) % Plt Count 219 (150-450) K/mm3 MPV 12.1 H (7.5-11.0) fl Gran % 56.6 (36.0-66.0) % Eos # (Auto) 0.24 (0-0.5) Absolute Lymphs (auto) 3.83 (1.0-4.6) Absolute Monos (auto) 0.87 (0.0-1.3) Lymphocytes % 33.5 (24.0-44.0) % Monocytes % 7.6 (0.0-12.0) % Eosinophils % 2.1 (0.00-5.0) % Basophils % 0.2 (0.0-0.4) % Absolute Granulocytes 6.46 (1.4-6.9) Basophils # 0.02 (0-0.4) Sodium 142 (137-145) mmol/L Potassium 4.0 (3.5-5.1) mmol/L Chloride 106 (98-107) mmol/L Carbon Dioxide 25 (22-30) mmol/L Anion Gap 15.5 H (5-15) MEQ/L BUN 16 (7-17) mg/dL Creatinine 1.05 H (0.52-1.04) mg/dL Estimated GFR > 60.0 ML/MIN Glucose 107 H (74-106) mg/dL Calcium 9.7 (8.4-10.2) mg/dL Total Bilirubin 0.50 (0.2-1.3) mg/dL AST 29 (14-36) U/L ALT 21 (0-35) U/L Alkaline Phosphatase 94 (38-126) U/L Troponin I < 0.012 (0.000-0.034) ng/mL Serum Total Protein 7.6 (6.3-8.2) g/dL Albumin 4.4 (3.5-5.0) g/dL Lipase 98 (23-300) U/L Urine Color (YELLOW) Urine Appearance (CLEAR) Urine pH (5-6) Ur Specific [place] (1.005-1.025) Urine Protein (Negative) Urine Ketones (NEGATIVE) Urine Blood (0-5) Aki/ul Urine Nitrite (NEGATIVE) Urine Bilirubin (NEGATIVE) Urine Urobilinogen (0-1) mg/dL Ur Leukocyte Esterase (NEGATIVE) Urine WBC (Auto) (0-5) /HPF Urine RBC (Auto) (0-2) /HPF U Epithel Cells (Auto) (FEW) /HPF Urine Bacteria (Auto) (NEGATIVE) /HPF Calcium Oxalate Crystal (NEGATIVE) /HPF Urine Mucus (Auto) (NEGATIVE) /HPF Urine Culture Reflexed (NO) Urine Glucose (NEGATIVE) mg/dL 05/04/21 Range/Units 22:43 WBC (4.0-10.5) K/mm3 RBC (4.1-5.4) M/mm3 Hgb (12.0-16.0) gm/dl Hct (35-47) % MCV (78-100) fl MCH (26-32) pg MCHC (32-36) g/dl RDW (11.5-14.0) % Plt Count (150-450) K/mm3 MPV (7.5-11.0) fl Gran % (36.0-66.0) % Eos # (Auto) (0-0.5) Absolute Lymphs (auto) (1.0-4.6) Absolute Monos (auto) (0.0-1.3) Lymphocytes % (24.0-44.0) % Monocytes % (0.0-12.0) % Eosinophils % (0.00-5.0) % Basophils % (0.0-0.4) % Absolute Granulocytes (1.4-6.9) Basophils # (0-0.4) Sodium (137-145) mmol/L Potassium (3.5-5.1) mmol/L Chloride (98-107) mmol/L Carbon Dioxide (22-30) mmol/L Anion Gap (5-15) MEQ/L BUN (7-17) mg/dL Creatinine (0.52-1.04) mg/dL Estimated GFR ML/MIN Glucose (74-106) mg/dL Calcium (8.4-10.2) mg/dL Total Bilirubin (0.2-1.3) mg/dL AST (14-36) U/L ALT (0-35) U/L Alkaline Phosphatase (38-126) U/L Troponin I (0.000-0.034) ng/mL Serum Total Protein (6.3-8.2) g/dL Albumin (3.5-5.0) g/dL Lipase (23-300) U/L Urine Color YELLOW (YELLOW) Urine Appearance CLOUDY (CLEAR) Urine pH 5.0 (5-6) Ur Specific [place] 1.034 (1.005-1.025) Urine Protein 30 (Negative) Urine Ketones NEGATIVE (NEGATIVE) Urine Blood NEGATIVE (0-5) Aki/ul Urine Nitrite NEGATIVE (NEGATIVE) Urine Bilirubin NEGATIVE (NEGATIVE) Urine Urobilinogen NEGATIVE (0-1) mg/dL Ur Leukocyte Esterase NEGATIVE (NEGATIVE) Urine WBC (Auto) NONE (0-5) /HPF Urine RBC (Auto) 0-2 (0-2) /HPF U Epithel Cells (Auto) FEW (FEW) /HPF Urine Bacteria (Auto) RARE (NEGATIVE) /HPF Calcium Oxalate Crystal 26-50 (NEGATIVE) /HPF Urine Mucus (Auto) SLIGHT (NEGATIVE) /HPF Urine Culture Reflexed NO (NO) Urine Glucose NEGATIVE (NEGATIVE) mg/dL - Progress Progress: improved Progress Note: Patient reassessed. She feels well. Work-up essentially nonremarkable. CT abdomen pelvis reveals hepatic steatosis. Otherwise no acute findings. Remaining labs are essentially nonremarkable. Patient feels well. She has no other complaints. Will discharge patient home at this time. Patient agrees to follow-up with her primary care doctor within 48 hours for evaluation. Portions of this note were created with voice recognition technology. There may be grammatical, spelling, punctuation or sound alike errors 05/05/21 00:28 Counseled pt/family regarding: lab results, diagnosis, need for follow-up, rad results - Departure Departure Disposition: Home Clinical Impression: Calcium oxalate crystals in urine, Hepatic steatosis, Muscle strain Condition: Stable Critical Care Time: No Referrals: YURI VELARDE MD [Primary Care Provider] - Follow up/PCP as directed Additional Instructions: Discharge/Care Plan DEBORAH CORTEZ was seen on 05/04/21 in the Emergency Room. The patient was counseled regarding Diagnosis,Lab results, Imaging studies, need for follow up and when to return to the Emergency Room. Prescriptions given: Discharge Note I have spoken with the patient and/or caregivers. I have explained the patient's condition, diagnosis and treatment plan based on the information available to me at this time. I have answered the patient's and/or caregiver's questions and addressed any concerns. The patient and/or caregivers have as good understanding of the patient's diagnosis, condition and treatment plan as can be expected at this point. The vital signs have been stable. The patient's condition is stable and appropriate for discharge from the emergency department. The patient will pursue further outpatient evaluation with the primary care physician or other designated or consulting physician as outlined in the discharge instructions. The patient and/or caregivers are agreeable to this plan of care and follow-up instructions have been explained in detail. The patient and/or caregivers have received these instruction. The patient/and or caregivers are aware that any significant change in condition or worsening of symptoms should prompt an immediate return to this or the closest emergency department or call 911.
[2021-05-05 00:27] VITALS: BP 123/52; PULSE 75
[2021-05-05 00:30] VITALS: O2SAT 98
--- NOTE | 2021-05-05 08:58 | XRAY ---
Indication: Left upper quadrant abdomen pain. Multiple contiguous images obtained through the abdomen and pelvis using 80 cc Isovue 370 contrast. Comparison: None Lung bases are clear. Heart is not enlarged. Stomach is distended with food/fluid. Noncontrasted stomach and bowel loops appear nonobstructed with normal appendix. Minimal scattered colonic diverticulosis without diverticulitis. Previous cholecystectomy. No free fluid/air. Diffuse fatty liver. 14.7 cm splenomegaly. Remaining liver, pancreas, spleen, adrenal glands, kidneys, ureters, bladder, uterus, and aorta are unremarkable. No pathologic retroperitoneal lymphadenopathy. Osseous structures intact with minimal degenerative changes throughout the thoracolumbar spine. Impression: 1. Minimal colonic diverticulosis, fatty liver, splenomegaly, and degenerative spondylosis. 2. Remaining CT abdomen/pelvis with contrast exam is negative. Comment: Preliminary interpretation made by [facility]. No critical discrepancy.
== END 2021-05-05 00:38 | disposition home or self-care (01) ==
LOC: ED 21:28
DX: S39.011A Strain of muscle, fascia and tendon of abdomen, initial encounter (principal); X50.0XXA Overexertion from strenuous movement or load, initial encounter; Y99.0 Civilian activity done for income or pay; K76.0 Fatty (change of) liver, not elsewhere classified; R82.998 Other abnormal findings in urine; E11.9 Type 2 diabetes mellitus without complications; Z79.84 Long term (current) use of oral hypoglycemic drugs; K21.9 Gastro-esophageal reflux disease without esophagitis; Z79.899 Other long term (current) drug therapy
CPT/HCPCS: 36000; 36415; 74177; 80053; 81001; 83690; 84484; 85025; 93005; 99284

== ENCOUNTER 2021-11-11 20:07 | Emergency (ER) | payer OTHER ==
[2021-11-11] MEDS ORDERED: TORAdol 30 mg Injection ONE (20:43)
[2021-11-11] MEDS ORDERED: Compazine 10 MG/2 ML ONE (20:44)
[2021-11-11] MEDS ORDERED: Sodium Chloride 0.9% 1000 ML 1,000 ML ONE (20:44)
[2021-11-11] MEDS ORDERED: TYLENOL 325 MG ONE (20:44)
[2021-11-11] MEDS: Sodium Chloride 0.9% 1000 ML 1,000 ML IV STA (20:45)
[2021-11-11] MEDS: Compazine 10 MG/2 ML IV ONE (20:45)
[2021-11-11] MEDS: TYLENOL 325 MG PO ONE (20:45)
[2021-11-11] MEDS: TORAdol 30 mg Injection IV ONE (20:45)
--- NOTE | 2021-11-11 20:51 | ERPHSYRPT ---
- History of Present Illness Time Seen by Provider: 11/11/21 20:20 Source: patient Exam Limitations: no limitations Patient Subjective Stated Complaint: I've had a headache for about a week. I've been to the [facility] several times and they haven't done anything for me, but test me for covid and I'm negative. Triage Nursing Assessment: pt ambulated into ER without difficulty. Pt c/o headache behind her eyes x1 week. Pt has had some diarrhea for the last few days, fever, night sweats. Pt was tested for covid 2 days ago at [facility] and it was negative. Physician History: Patient is a 26-year-old female presents to emergency department for evaluation of a headache. Patient has history of migraine headaches. She normally takes Toradol. Patient ran out of her Toradol. Patient states his headache has been ongoing intermittently for approximately 3 weeks. Headache is primarily behind her eyes. Patient went to [facility]. She was checked for COVID. COVID- negative. Patient also states she has been experiencing some diarrhea. No chest pain or shortness of breath. No nausea vomiting or diaphoresis. She experiences some night sweats at night. Patient voices no other complaint or concerns at this time. Portions of this note were created with voice recognition technology. There may be grammatical, spelling, punctuation or sound alike errors Timing/Duration: week(s) (3 weeks) Severity: moderate Modifying Factors: Improves With: ibuprofen Associated Symptoms: other (Diarrhea) Allergies/Adverse Reactions: hydrocodone [From [place]] Adverse Reaction (Intermediate, Verified 11/11/21 20:27) Nausea and Vomiting Home Medications: PARoxetine HCl [Paxil] 40 mg PO DAILY 11/11/21 [History] Hx Tetanus, Diphtheria Vaccination/Date Given: No Hx Influenza Vaccination/Date Given: Yes Hx Pneumococcal Vaccination/Date Given: No Immunizations Up to Date: No Travel Risk - International Travel Have you traveled outside of the country in past 3 weeks: No - Coronavirus Screening Are you exhibiting any of the following symptoms?: Yes Symptoms: Vomiting/Diarrhea, Headaches/Body Aches/Fatigue Close contact with a COVID-19 positive Pt in past 14-21 Days: No - Vaccine Status Have you recieved a Covid-19 vaccination: No - Review of Systems Constitutional: No Symptoms, No Fever, No Chills Eyes: No Symptoms Ears, Nose, & Throat: No Symptoms Respiratory: No Symptoms, No Cough, No Dyspnea Cardiac: No Symptoms, No Chest Pain, No Edema, No Syncope Abdominal/Gastrointestinal: No Symptoms, No Abdominal Pain, No Nausea, No Vomiting, No Diarrhea Genitourinary Symptoms: No Symptoms, No Dysuria Musculoskeletal: No Symptoms, No Back Pain, No Neck Pain Skin: No Symptoms, No Rash Neurological: No Symptoms, No Dizziness, No Focal Weakness, No Sensory Changes Psychological: No Symptoms Endocrine: No Symptoms Hematologic/Lymphatic: No Symptoms Immunological/Allergic: No Symptoms All Other Systems: Reviewed and Negative - Past Medical History Pertinent Past Medical History: Yes Neurological History: Migraines ENT History: No Pertinent History Cardiac History: No Pertinent History Respiratory History: No Pertinent History Endocrine Medical History: Diabetes Type II Musculoskeletal History: No Pertinent History GI Medical History: GERD, Gallbladder Disease History: No Pertinent History Psycho-Social History: No Pertinent History Female Reproductive Disorders: No Pertinent History Other Medical History: iron def anemia - Past Surgical History Past Surgical History: Yes Neuro Surgical History: No Pertinent History Cardiac: No Pertinent History Respiratory: No Pertinent History Gastrointestinal: Cholecystectomy Genitourinary: No Pertinent History Musculoskeletal: No Pertinent History Female Surgical History: No Pertinent History - Social History Smoking Status: Never smoker Exposure to second hand smoke: No Drug Use: none Patient Lives Alone: No - Female History Hx Last Menstrual Period: 11/10/21 Hx Now: No - Nursing Vital Signs Nursing Vital Signs: Initial Vital Signs Temperature 97.5 F 11/11/21 20:16 Pulse Rate 60 11/11/21 20:16 Respiratory Rate 18 11/11/21 20:16 Blood Pressure 112/69 11/11/21 20:16 O2 Sat by Pulse Oximetry 99 11/11/21 20:16 Pain Scale Pain Intensity 8 - Physical Exam General Appearance: no apparent distress, alert Eye Exam: PERRL/EOMI, eyes nml inspection, other (Maxillary sinus tenderness bilaterally) Ears, Nose, Throat Exam: normal ENT inspection, TMs normal, pharynx normal, mo ist mucous membranes Neck Exam: normal inspection, non-tender, supple, full range of motion Respiratory Exam: normal breath sounds, lungs clear, airway intact, No respiratory distress Cardiovascular Exam: regular rate/rhythm, normal heart sounds, normal peripheral pulses Gastrointestinal/Abdomen Exam: soft, normal bowel sounds, No tenderness, No mass Back Exam: normal inspection, normal range of motion, No CVA tenderness, No vertebral tenderness Extremity Exam: normal inspection, normal range of motion, pelvis stable Neurologic Exam: alert, oriented x 3, cooperative, normal mood/affect, nml cerebellar function, nml station & gait, sensation nml, No motor deficits Skin Exam: normal color, warm, dry, No rash Lymphatic Exam: No adenopathy SpO2 Interpretation: normal SpO2: 99 O2 Delivery: Room Air - Course Nursing assessment & vital signs reviewed: Yes Ordered Tests: Active Orders 24 hr Category Date Time Status IV Insertion STAT Care 11/11/21 20:24 Active HCG,QUALITATIVE URINE Stat Lab 11/11/21 21:06 Ordered UA W/RFX CULTURE Stat Lab 11/11/21 Ordered Medication Summary Generic Name Dose Route Start Last Admin Trade Name Freq PRN Reason Stop Dose Admin Sodium Chloride 1,000 mls @ 999 mls/hr 11/11/21 20:24 11/11/21 20:45 Sodium Chloride 0.9% 1000 Ml IV 11/11/21 21:24 999 mls/hr .Q1H1M STA Administration Discontinued Medications Generic Name Dose Route Start Last Admin Trade Name Freq PRN Reason Stop Dose Admin Acetaminophen 975 mg 11/11/21 20:26 11/11/21 20:45 Acetaminophen 325 Mg Tablet PO 11/11/21 20:27 975 mg STAT ONE Administration Acetaminophen Confirm 11/11/21 20:44 Acetaminophen 325 Mg Tablet Administered 11/11/21 20:45 Dose 975 mg .ROUTE .STK-MED ONE Sodium Chloride Confirm 11/11/21 20:44 Sodium Chloride 0.9% 1000 Ml Administered 11/11/21 20:45 Dose 1,000 mls @ ud .ROUTE .STK-MED ONE Ketorolac Tromethamine 30 mg 11/11/21 20:25 11/11/21 20:45 Ketorolac Tromethamine 30 Mg/Ml Inj IV 11/11/21 20:26 30 mg STAT ONE Administration Ketorolac Tromethamine Confirm 11/11/21 20:43 Ketorolac Tromethamine 30 Mg/Ml Inj Administered 11/11/21 20:44 Dose 30 mg .ROUTE .STK-MED ONE Prochlorperazine Edisylate 10 mg 11/11/21 20:25 11/11/21 20:45 Prochlorperazine Edisylate 10 Mg/2 Ml Vial IV 11/11/21 20:26 10 mg STAT ONE Administration Prochlorperazine Edisylate Confirm 11/11/21 20:44 Prochlorperazine Edisylate 10 Mg/2 Ml Vial Administered 11/11/21 20:45 Dose 10 mg .ROUTE .STK-MED ONE - Progress Progress: improved Progress Note: Patient reassessed. She feels well. Headache improved. IV fluids infused. Patient received 1 L normal saline. Toradol and Compazine administered. A prescription for Augmentin, Flonase and Toradol was forwarded to patient's pharmacy. Patient states he is ready for discharge. She voices no other complaints or concerns at this time. Patient agrees to follow-up with primary care doctor within 48 hours for evaluation. Patient had a urine test at [facility] this week. was negative. Patient denies possibility of . Portions of this note were created with voice recognition technology. There may be grammatical, spelling, punctuation or sound alike errors 11/11/21 21:11 Counseled pt/family regarding: diagnosis, need for follow-up, rad results - Departure Departure Disposition: Home Clinical Impression: Sinus headache Condition: Stable Critical Care Time: No Referrals: YURI VELARDE MD [ACTIVE STAFF] - Follow up/PCP as directed Additional Instructions: Discharge/Care Plan DEBORAH CORTEZ was seen on 11/11/21 in the Emergency Room. The patient was counseled regarding Diagnosis,Lab results, Imaging studies, need for follow up and when to return to the Emergency Room. Prescriptions given: Discharge Note I have spoken with the patient and/or caregivers. I have explained the patient's condition, diagnosis and treatment plan based on the information available to me at this time. I have answered the patient's and/or caregiver's questions and addressed any concerns. The patient and/or caregivers have as good understanding of the patient's diagnosis, condition and treatment plan as can be expected at this point. The vital signs have been stable. The patient's condition is stable and appropriate for discharge from the emergency department. The patient will pursue further outpatient evaluation with the primary care physician or other designated or consulting physician as outlined in the discharge instructions. The patient and/or caregivers are agreeable to this plan of care and follow-up instructions have been explained in detail. The patient and/or caregivers have received these instruction. The patient/and or caregivers are aware that any significant change in condition or worsening of symptoms should prompt an immediate return to this or the closest emergency department or call 911. Prescriptions: Amox Tr/Potass Clav. 875 mg [Augmentin 875-125 Tablet] 875 mg PO BID 7 Days #14 tablet Fluticasone Propionate [Flonase NASAL] 16 gm NS DAILY 7 Days #1 unit Ketorolac Trometh 10 mg Tab [TORAdol 10 MG TABLET] 10 mg PO TID 5 Days #15 tablet
[2021-11-11 21:59] VITALS: BP 129/93; PULSE 78; O2SAT 100
== END 2021-11-11 21:54 | disposition home or self-care (01) ==
LOC: ED 20:07
DX: G44.89 Other headache syndrome (principal); R19.7 Diarrhea, unspecified; E11.9 Type 2 diabetes mellitus without complications; Z79.899 Other long term (current) drug therapy; Z28.310 Unvaccinated for COVID-19
CPT/HCPCS: 36000; 96360; 96374; 96375; 99284; J1885; A9270-GY

== ENCOUNTER 2021-12-27 12:48 | Emergency (ER) | payer OTHER ==
[2021-12-27 13:10] VITALS: BP 134/93; PULSE 106; O2SAT 98
[2021-12-27] MEDS ORDERED: TORAdol 30 mg Injection IV ONE (14:02)
[2021-12-27] MEDS ORDERED: TORAdol 30 mg Injection IM ONE (14:06)
[2021-12-27] MEDS ORDERED: TORAdol 30 mg Injection ONE (14:06)
--- NOTE | 2021-12-27 14:42 | ERPHSYRPT ---
- History of Present Illness Time Seen by Provider: 12/27/21 12:56 Patient Subjective Stated Complaint: Left ankle injury Triage Nursing Assessment: Patient brought back to ED per w/c and transferred to bed per self. Patient A+OX 3. Patient's skin pink, warm and dry. Patient complains of left ankle/foot pain after stepping off her porch steps wrong yesterday. Patient states she did hear a pop. Patient complains of pain 8/10 when ambulating. Swelling and bruising noted to left ankle. Patient also complains of sore throat and not being able to hear out of right ear. Physician History: 26 years old female presented in the ER with chief complaint of left ankle pain after she twisted and fell yesterday. Patient reported gradually increasing swelling and pain moderate to severe sharp with ambulation and movements. Able to walk but painful. No injury anywhere else. Method of Injury: fell, twisted Occurred: yesterday Quality: sharpness Severity of Pain-Max: severe Severity of Pain-Current: moderate Lower Extremities Pain: ankle: left Modifying Factors: Improves With: immobilization. Worsens With: movement Associated Symptoms: none Allergies/Adverse Reactions: hydrocodone [From [place]] Adverse Reaction (Intermediate, Verified 11/11/21 20:27) Nausea and Vomiting Home Medications: PARoxetine HCl [Paxil] 40 mg PO DAILY 11/11/21 [History] Hx Tetanus, Diphtheria Vaccination/Date Given: No Hx Influenza Vaccination/Date Given: Yes Hx Pneumococcal Vaccination/Date Given: No Immunizations Up to Date: Yes Travel Risk - International Travel Have you traveled outside of the country in past 3 weeks: No - Coronavirus Screening Are you exhibiting any of the following symptoms?: No - Vaccine Status Have you recieved a Covid-19 vaccination: No - Review of Systems Constitutional: No Symptoms Ears, Nose, & Throat: No Symptoms Respiratory: No Symptoms Cardiac: No Symptoms Abdominal/Gastrointestinal: No Symptoms Genitourinary Symptoms: No Symptoms Musculoskeletal: Injury, Joint Pain, Joint Swelling Skin: No Symptoms Neurological: No Symptoms Psychological: No Symptoms Hematologic/Lymphatic: No Symptoms Immunological/Allergic: No Symptoms - Past Medical History Pertinent Past Medical History: Yes Neurological History: Migraines ENT History: No Pertinent History Cardiac History: No Pertinent History Respiratory History: No Pertinent History Endocrine Medical History: Diabetes Type II Musculoskeletal History: No Pertinent History GI Medical History: GERD, Gallbladder Disease History: No Pertinent History Psycho-Social History: No Pertinent History Female Reproductive Disorders: No Pertinent History Other Medical History: iron def anemia - Past Surgical History Past Surgical History: Yes Neuro Surgical History: No Pertinent History Cardiac: No Pertinent History Respiratory: No Pertinent History Gastrointestinal: Cholecystectomy Genitourinary: No Pertinent History Musculoskeletal: No Pertinent History Female Surgical History: No Pertinent History - Social History Smoking Status: Never smoker Exposure to second hand smoke: No Drug Use: none Patient Lives Alone: No - Female History Hx Last Menstrual Period: November Hx Now: No - Nursing Vital Signs Nursing Vital Signs: Initial Vital Signs Temperature 98.9 F 12/27/21 13:05 Pulse Rate 106 H 12/27/21 13:05 Respiratory Rate 18 12/27/21 13:05 Blood Pressure 134/93 12/27/21 13:05 O2 Sat by Pulse Oximetry 98 12/27/21 13:05 Pain Scale Pain Intensity 2 - Physical Exam General Appearance: no apparent distress, alert Eyes, Ears, Nose, Throat Exam: normal ENT inspection Neck Exam: normal inspection, full range of motion Cardiovascular/Respiratory Exam: normal breath sounds, regular rate/rhythm Back Exam: normal inspection Ankle Exam: right ankle: non-tender, normal inspection, normal range of motion, no evidence of injury, left ankle: bone tenderness (Lateral malleolus), limited range of motion, pain, soft tissue tenderness, swelling Foot Exam: bilateral foot: non-tender, normal inspection, normal range of motion, no evidence of injury Neuro/Tendon Exam: normal sensation, normal motor functions Mental Status Exam: alert, oriented x 3, cooperative Skin Exam: normal color SpO2 Interpretation: normal SpO2: 98 O2 Delivery: Room Air Ordered Tests: Active Orders 24 hr Category Date Time Status ANKLE (3 VIEWS) Stat Exams 12/27/21 13:17 Taken FOOT (MINIMUM 3 VIEWS) Stat Exams 12/27/21 13:17 Taken Medication Summary Discontinued Medications Generic Name Dose Route Start Last Admin Trade Name Freq PRN Reason Stop Dose Admin Ketorolac Tromethamine 30 mg 12/27/21 14:02 12/27/21 14:05 Ketorolac Tromethamine 30 Mg/Ml Inj IV 12/27/21 14:03 Not Given STAT ONE Ketorolac Tromethamine 30 mg 12/27/21 14:06 12/27/21 14:09 Ketorolac Tromethamine 30 Mg/Ml Inj IM 12/27/21 14:07 30 mg STAT ONE Administration Ketorolac Tromethamine Confirm 12/27/21 14:06 Ketorolac Tromethamine 30 Mg/Ml Inj Administered 12/27/21 14:07 Dose 30 mg .ROUTE .STK-MED ONE - Progress Progress: improved Progress Note: 12/27/21 14:40 Given Toradol for symptomatic relief, x-rays negative for fracture dislocation reviewed by me. Official report is pending. Placed on Aircast, ibuprofen, elevation, ice and outpatient podiatry follow-up Counseled pt/family regarding: diagnosis, need for follow-up, rad results - Departure Departure Disposition: Home Clinical Impression: Ankle sprain Condition: Stable Critical Care Time: No Referrals: BHAVIN HECTOR [Primary Care Provider] - Follow Up with PCP/3 days () IMER TAVAREZ DPM [ACTIVE STAFF] - Follow up/PCP as directed (1-2 days for reevaluation) Instructions: Ankle Sprain (DC), Ankle Fracture (DC) Additional Instructions: Take Tylenol/ibuprofen as needed for pain. Avoid exertional activities. Intermittent ice application, elevation, follow-up with podiatry for reevaluation. Prescriptions: Ibuprofen 600 mg PO Q6HPRN PRN 10 Days #20 tablet PRN Reason: Pain
--- NOTE | 2021-12-27 18:20 | XRAY ---
Indication: Pain and swelling following fall. Comparison: None 3 nonweightbearing views left foot demonstrates tiny plantar heel spur. No other bony, articular, or soft tissue abnormalities.
--- NOTE | 2021-12-27 18:20 | XRAY ---
Indication: Pain and swelling following fall. Comparison: None 3 view left ankle demonstrates lateral soft tissue swelling and tiny plantar heel spur. No other bony, articular, or soft tissue abnormalities.
== END 2021-12-27 14:52 | disposition home or self-care (01) ==
LOC: ED 12:48
DX: S93.402A Sprain of unspecified ligament of left ankle, initial encounter (principal); W01.0XXA Fall on same level from slipping, tripping and stumbling without subsequent striking against object, initial encounter; M25.572 Pain in left ankle and joints of left foot; E11.9 Type 2 diabetes mellitus without complications; Z79.899 Other long term (current) drug therapy; Z28.310 Unvaccinated for COVID-19
CPT/HCPCS: 73610; 73630; 96372; 99283; J1885

== ENCOUNTER 2023-02-02 21:56 | Emergency (ER) | payer OTHER ==
[2023-02-02 22:17] VITALS: TEMP 96
[2023-02-02] MEDS ORDERED: ZOFRAN ODT 4 MG PO ONE (22:17)
[2023-02-02] MEDS ORDERED: ZOFRAN ODT 4 MG ONE (22:20)
[2023-02-02 22:43] LABS: ADD URINE CULTURE? YES (NO); Appearance Cloudy (Clear); Bacteria Few /HPF (None Seen); Bilirubin Negative (Negative); Blood Negative (Negative); Epithelial Cells Moderate /HPF (None Seen); Glucose, Urine Negative (Negative); Hyaline Casts NONE SEEN /LPF (0-2); Ketones Trace (Negative); Leukocyte Esterase Trace (Negative); Nitrite Negative (Negative); Protein,Urine Dip Trace (Negative); RBC 0-2 /HPF (0-5); Specific Gravity 1.015 (1.005-1.030); WBC 21-50 /HPF (0-5)
[2023-02-02] MEDS ORDERED: Rocephin 1000 MG INJ IM ONE (23:01)
[2023-02-02] MEDS ORDERED: Rocephin 1000 MG INJ ONE (23:07)
[2023-02-02] MEDS ORDERED: XYLOCAINE 1% HCL 20 ML MDV ONE (23:07)
--- NOTE | 2023-02-02 23:08 | ERPHSYRPT ---
- History of Present Illness Time Seen by Provider: 02/02/23 22:10 Source: patient Exam Limitations: no limitations Patient Subjective Stated Complaint: pt states that she has been vomiting since Tuesday. Triage Nursing Assessment: pt ambulated into the er; pt is axo x4; c/o vomiting; c/o N/V/D; pt states pain to epigastric region, tenderness to that area; active bowel sounds in all quads; last bm 02/02/23; mucus membranes pink and moist; skin PDW; no respiratory distress present; vital wnl Physician History: Patient is a 28-year-old female presents to our emergency department for evaluation of nausea and vomiting since Tuesday. Patient has some epigastric pain. Patient has also been experiencing diarrhea. No trauma no fever. No chest pain. Symptoms are mild to moderate in intensity. No specific worsening or improving factors. Patient voices no other complaints or concerns at this time. We advised work-up including laboratory work-up IV fluids urinalysis nausea medication. Patient declined a full work-up. Patient shows to try an antiemetic first and agree to urinalysis. Patient stated that if she did not improve with the Zofran that she would reconsider a work-up with IV fluid for rehydration. Portions of this note were created with voice recognition technology. There may be grammatical, spelling, punctuation or sound alike errors Timing/Duration: today Severity: moderate Modifying Factors: Improves With: nothing Associated Symptoms: denies symptoms Allergies/Adverse Reactions: hydrocodone [From Victor] Adverse Reaction (Intermediate, Verified 02/02/23 22:0 1) Nausea and Vomiting Home Medications: Butalbital/Acetaminophen [Butalbital-Acetaminophn 50-300] 1 each PO Q6HPRN PRN 02/02/23 [History] Omeprazole 40 mg PO DAILY 02/02/23 [History] Semaglutide [Ozempic] 1 mg SQ WEEKLY 02/02/23 [History] Venlafaxine HCl ER 75 mg [Effexor XR 75 MG] 75 mg PO DAILY 02/02/23 [History] Hx Tetanus, Diphtheria Vaccination/Date Given: No Hx Influenza Vaccination/Date Given: No Hx Pneumococcal Vaccination/Date Given: No Travel Risk - International Travel Have you traveled outside of the country in past 3 weeks: No - Coronavirus Screening Are you exhibiting any of the following symptoms?: Yes Symptoms: Vomiting/Diarrhea Close contact with a COVID-19 positive Pt in past 14-21 Days: No - Vaccine Status Have you recieved a Covid-19 vaccination: No - Review of Systems Constitutional: No Symptoms, No Fever, No Chills Eyes: No Symptoms Ears, Nose, & Throat: No Symptoms Respiratory: No Symptoms, No Cough, No Dyspnea Cardiac: No Symptoms, No Chest Pain, No Edema, No Syncope Abdominal/Gastrointestinal: No Symptoms, No Abdominal Pain, No Nausea, No Vomiting, No Diarrhea Genitourinary Symptoms: No Symptoms, No Dysuria Musculoskeletal: No Symptoms, No Back Pain, No Neck Pain Skin: No Symptoms, No Rash Neurological: No Symptoms, No Dizziness, No Focal Weakness, No Sensory Changes Psychological: No Symptoms Endocrine: No Symptoms Hematologic/Lymphatic: No Symptoms Immunological/Allergic: No Symptoms All Other Systems: Reviewed and Negative - Past Medical History Pertinent Past Medical History: Yes Neurological History: Migraines ENT History: No Pertinent History Cardiac History: No Pertinent History Respiratory History: No Pertinent History Endocrine Medical History: Diabetes Type II Musculoskeletal History: No Pertinent History GI Medical History: GERD, Gallbladder Disease History: No Pertinent History Psycho-Social History: No Pertinent History Female Reproductive Disorders: No Pertinent History Other Medical History: iron def anemia - Past Surgical History Past Surgical History: Yes Neuro Surgical History: No Pertinent History Cardiac: No Pertinent History Respiratory: No Pertinent History Gastrointestinal: Cholecystectomy Genitourinary: No Pertinent History Musculoskeletal: No Pertinent History Female Surgical History: No Pertinent History - Social History Smoking Status: Never smoker Exposure to second hand smoke: No Drug Use: none Patient Lives Alone: No - Female History Hx Now: No - Nursing Vital Signs Nursing Vital Signs: Initial Vital Signs Temperature 96 F 02/02/23 22:00 Pulse Rate 98 H 02/02/23 22:00 Respiratory Rate 18 02/02/23 22:00 Blood Pressure 124/78 02/02/23 22:00 O2 Sat by Pulse Oximetry 96 02/02/23 22:00 Pain Scale Pain Intensity 4 - Physical Exam General Appearance: no apparent distress, alert Eye Exam: PERRL/EOMI, eyes nml inspection Ears, Nose, Throat Exam: normal ENT inspection, TMs normal, pharynx normal, moist mucous membranes Neck Exam: normal inspection, non-tender, supple, full range of motion Respiratory Exam: normal breath sounds, lungs clear, airway intact, No respiratory distress Cardiovascular Exam: regular rate/rhythm, normal heart sounds, normal peripheral pulses Gastrointestinal/Abdomen Exam: soft, normal bowel sounds, No tenderness, No mass Back Exam: normal inspection, normal range of motion, No CVA tenderness, No vertebral tenderness Extremity Exam: normal inspection, normal range of motion, pelvis stable Neurologic Exam: alert, oriented x 3, cooperative, normal mood/affect, nml cerebellar function, nml station & gait, sensation nml, No motor deficits Skin Exam: normal color, warm, dry, No rash Lymphatic Exam: No adenopathy SpO2 Interpretation: normal SpO2: 97 O2 Delivery: Room Air - Course Nursing assessment & vital signs reviewed: Yes Ordered Tests: Active Orders 24 hr Category Date Time Status IV Insertion STAT Care 02/02/23 23:14 Active CBC W DIFF Stat Lab 02/02/23 23:22 Completed CMP Stat Lab 02/02/23 23:22 Completed CULTURE,URINE Stat Lab 02/02/23 22:22 Received LIPASE Stat Lab 02/02/23 23:22 Completed TROPONIN Q4H Lab 02/02/23 23:22 Completed TROPONIN Q4H Lab 02/03/23 03:15 Ordered TROPONIN Q4H Lab 02/03/23 07:15 Ordered UA W/RFX UR CULTURE Stat Lab 02/02/23 22:22 Completed Medication Summary Discontinued Medications Generic Name Dose Route Start Last Admin Trade Name Servandoq PRN Reason Stop Dose Admin Ceftriaxone Sodium 1,000 mg 02/02/23 23:01 02/02/23 23:09 Ceftriaxone Sodium 1000 Mg Inj Vial IM 02/02/23 23:02 1,000 mg STAT ONE Administration Ceftriaxone Sodium Confirm 02/02/23 23:07 Ceftriaxone Sodium 1000 Mg Inj Vial Administered 02/02/23 23:08 Dose 1,000 mg .ROUTE .STK-MED ONE Sodium Chloride 1,000 mls @ 999 mls/hr 02/02/23 23:14 02/03/23 00:28 Sodium Chloride 0.9% 1000 Ml IV 02/03/23 00:14 Infused .Q1H1M STA Infusion Sodium Chloride Confirm 02/02/23 23:22 Sodium Chloride 0.9% 1000 Ml Administered 02/02/23 23:23 Dose 1,000 mls @ ud .ROUTE .STK-MED ONE Lidocaine HCl Confirm 02/02/23 23:07 Lidocaine Hcl 1% 20 Ml Mdv 20 Ml Ml Administered 02/02/23 23:08 Dose 3 ml .ROUTE .STK-MED ONE Ondansetron HCl 4 mg 02/02/23 22:17 02/02/23 22:20 Zofran 4 Mg/Udtablet Orally Disintegrating PO 02/02/23 22:18 4 mg STAT ONE Administration Ondansetron HCl Confirm 02/02/23 22:20 Zofran 4 Mg/Udtablet Orally Disintegrating Administered 02/02/23 22:21 Dose 4 mg .ROUTE .STK-MED ONE Lab/Rad Data: Laboratory Result Diagrams 02/02/23 23:22 02/02/23 23:22 Laboratory Results 02/02/23 02/02/23 02/02/23 Range/Units 23:22 23:22 23:22 WBC 11.2 H (4.0-10.5) x10^3/uL RBC 5.25 (4.1-5.4) x10^6/uL Hgb 14.7 (12.0-16.0) g/dL Hct 45.5 (35-47) % MCV 86.7 (78-100) fL MCH 28.0 (26-32) pg MCHC 32.3 (32-36) g/dL RDW 12.3 (11.5-14.0) % Plt Count 205 (150-450) x10^3/uL MPV 11.0 (7.5-11.0) fL Gran % 76.7 H (36.0-66.0) % Immature Gran % (Auto) 0.4 (0.00-0.4) % Nucleat RBC Rel Count 0.0 (0.00-0.1) % Eos # (Auto) 0.14 (0-0.5) x10^3/uL Immature Gran # (Auto) 0.05 H (0.00-0.03) x10^3u/L Absolute Lymphs (auto) 1.81 (1.0-4.6) x10^3/uL Absolute Monos (auto) 0.61 (0.0-1.3) x10^3/uL Absolute Nucleated RBC 0.00 (0.00-0.01) x10^3u/L Lymphocytes % 16.1 L (24.0-44.0) % Monocytes % 5.4 (0.0-12.0) % Eosinophils % 1.2 (0.00-5.0) % Basophils % 0.2 (0.0-0.4) % Absolute Granulocytes 8.58 H (1.4-6.9) x10^3/uL Basophils # 0.02 (0-0.4) x10^3/uL Sodium 139 (137-145) mmol/L Potassium 3.9 (3.5-5.1) mmol/L Chloride 104 (98-107) mmol/L Carbon Dioxide 25 (22-30) mmol/L Anion Gap 13.6 (5-15) MEQ/L BUN 15 (7-17) mg/dL Creatinine 1.07 H (0.52-1.04) mg/dL Estimated GFR 73.0 ML/MIN Glucose 97 (74-106) mg/dL Calcium 9.3 (8.4-10.2) mg/dL Total Bilirubin 0.90 (0.2-1.3) mg/dL AST 37 H (14-36) U/L ALT 26 (0-35) U/L Alkaline Phosphatase 64 (38-126) U/L Troponin I < 0.012 (0.000-0.034) ng/mL Serum Total Protein 7.1 (6.3-8.2) g/dL Albumin 4.2 (3.5-5.0) g/dL Lipase 42 (23-300) U/L Urine Color (Yellow) Urine Appearance (Clear) Urine pH (4.6-8.0) Ur Specific [place] (1.005-1.030) Urine Protein (Negative) Urine Glucose (UA) (Negative) mg/dL Urine Ketones (Negative) Urine Blood (Negative) Urine Nitrite (Negative) Urine Bilirubin (Negative) Urine Urobilinogen (0.2) mg/dL Ur Leukocyte Esterase (Negative) U Hyaline Cast (Auto) (0-2) /LPF Urine Microscopic RBC (0-5) /HPF Urine Microscopic WBC (0-5) /HPF Ur Epithelial Cells (None Seen) /HPF Urine Bacteria (None Seen) /HPF Urine Culture Reflexed (NO) 02/02/23 Range/Units 22:22 WBC (4.0-10.5) x10^3/uL RBC (4.1-5.4) x10^6/uL Hgb (12.0-16.0) g/dL Hct (35-47) % MCV (78-100) fL MCH (26-32) pg MCHC (32-36) g/dL RDW (11.5-14.0) % Plt Count (150-450) x10^3/uL MPV (7.5-11.0) fL Gran % (36.0-66.0) % Immature Gran % (Auto) (0.00-0.4) % Nucleat RBC Rel Count (0.00-0.1) % Eos # (Auto) (0-0.5) x10^3/uL Immature Gran # (Auto) (0.00-0.03) x10^3u/L Absolute Lymphs (auto) (1.0-4.6) x10^3/uL Absolute Monos (auto) (0.0-1.3) x10^3/uL Absolute Nucleated RBC (0.00-0.01) x10^3u/L Lymphocytes % (24.0-44.0) % Monocytes % (0.0-12.0) % Eosinophils % (0.00-5.0) % Basophils % (0.0-0.4) % Absolute Granulocytes (1.4-6.9) x10^3/uL Basophils # (0-0.4) x10^3/uL Sodium (137-145) mmol/L Potassium (3.5-5.1) mmol/L Chloride (98-107) mmol/L Carbon Dioxide (22-30) mmol/L Anion Gap (5-15) MEQ/L BUN (7-17) mg/dL Creatinine (0.52-1.04) mg/dL Estimated GFR ML/MIN Glucose (74-106) mg/dL Calcium (8.4-10.2) mg/dL Total Bilirubin (0.2-1.3) mg/dL AST (14-36) U/L ALT (0-35) U/L Alkaline Phosphatase (38-126) U/L Troponin I (0.000-0.034) ng/mL Serum Total Protein (6.3-8.2) g/dL Albumin (3.5-5.0) g/dL Lipase (23-300) U/L Urine Color Yellow (Yellow) Urine Appearance Cloudy A (Clear) Urine pH 5.0 (4.6-8.0) Ur Specific [place] 1.015 (1.005-1.030) Urine Protein Trace A (Negative) Urine Glucose (UA) Negative (Negative) mg/dL Urine Ketones Trace A (Negative) Urine Blood Negative (Negative) Urine Nitrite Negative (Negative) Urine Bilirubin Negative (Negative) Urine Urobilinogen 1.0 A (0.2) mg/dL Ur Leukocyte Esterase Trace A (Negative) U Hyaline Cast (Auto) NONE SEEN (0-2) /LPF Urine Microscopic RBC 0-2 (0-5) /HPF Urine Microscopic WBC 21-50 A (0-5) /HPF Ur Epithelial Cells Moderate A (None Seen) /HPF Urine Bacteria Few A (None Seen) /HPF Urine Culture Reflexed YES (NO) - Progress Progress: improved Progress Note: Patient is a 28-year-old female presents to our ED for evaluation of nausea vomiting diarrhea. Patient states unable to tolerate p.o. No fever. Physical exam essentially nonremarkable. Patient initially declined work-up. Patient only agreed to a urinalysis Zofran and p.o. challenge. Patient tolerated p.o. challenge well. However she stated that she still did not feel well. We decided to move forward with laboratory work-up and IV fluids for rehydration. CBC reveals a leukocytosis of 11.2. Patient has a urinary tract infection. Patient received a dose of Rocephin in our ED. CMP within normal limits. Lipase negative. Troponin negative. Patient received a liter of normal saline with Zofran. Patient tolerated p.o. Patient feels much better and is now requesting discharge. Patient discharged home. A prescription for Keflex and Zofran forwarded to patient's pharmacy. Patient agrees to follow-up with her primary care doctor within 48 hours for evaluation. She voices no other complaints or concerns at this time. Vital stable at discharge. Portions of this note were created with voice recognition technology. There may be grammatical, spelling, punctuation or sound alike errors Complexity of problems addressed is moderate acute complicated No critical care time Complexity of data reviewed and analyzed is moderate. Test ordered test reviewed. Results analyzed and correlated clinically with history and physical examination. Dr. Aleman independently reviewed the labs including the urinalysis which showed a urinary tract infection. Risk of complication and or risk of morbidity/mortality of patient management is moderate. A prescription for Zofran and Keflex forwarded to patient's pharmacy. Vital stable. Plan of care established for shared decision making. Time spent to discharge patient is approximately 15 minutes. No social determinants of health present impede follow-up. Portions of this note were created with voice recognition technology. There may be grammatical, spelling, punctuation or sound alike errors 02/03/23 00:41 Counseled pt/family regarding: lab results, diagnosis, need for follow-up - Departure Departure Disposition: Home Clinical Impression: UTI (urinary tract infection), Nausea vomiting and diarrhea Condition: Stable Critical Care Time: No Referrals: BHAVIN HECTOR [Primary Care Provider] - Follow up/PCP as directed Additional Instructions: Discharge/Care Plan DEBORAH CORTEZ was seen on 02/02/23 in the Emergency Room. The patient was counseled regarding Diagnosis,Lab results, Imaging studies, need for follow up and when to return to the Emergency Room. Prescriptions given: Discharge Note I have spoken with the patient and/or caregivers. I have explained the patient's condition, diagnosis and treatment plan based on the information available to me at this time. I have answered the patient's and/or caregiver's questions and addressed any concerns. The patient and/or caregivers have as good understanding of the patient's diagnosis, condition and treatment plan as can be expected at this point. The vital signs have been stable. The patient's condition is stable and appropriate for discharge from the emergency department. The patient will pursue further outpatient evaluation with the primary care physician or other designated or consulting physician as outlined in the discharge instructions. The patient and/or caregivers are agreeable to this plan of care and follow-up instructions have been explained in detail. The patient and/or caregivers have received these instruction. The patient/and or caregivers are aware that any significant change in condition or worsening of symptoms should prompt an immediate return to this or the closest emergency department or call 911. Prescriptions: Ondansetron ODT 4 MG [Zofran Odt 4 mg] 4 mg PO Q6H PRN PRN #10 tablet PRN Reason: Vomiting Cephalexin Mh 500 mg [Keflex 500 mg] 500 mg PO TID #21 cap
[2023-02-02] MEDS ORDERED: Sodium Chloride 0.9% 1000 ML 1,000 ML IV STA (23:14)
[2023-02-02] MEDS ORDERED: Sodium Chloride 0.9% 1000 ML 1,000 ML ONE (23:22)
[2023-02-02 23:25] LABS: Absolute Neutrophil Ct (ANC) 8.58 x10^3/uL (1.4-6.9); BASOPHIL % 0.2 % (0.0-0.4); Basophil (Absolute #) 0.02 x10^3/uL (0-0.4); Eosinophil % 1.2 % (0.00-5.0); Eosinophil (Absolute #) 0.14 x10^3/uL (0-0.5); Hematocrit 45.5 % (35-47); Hemoglobin 14.7 g/dL (12.0-16.0); IMMATURE GRAN # 0.05 x10^3u/L (0.00-0.03); IMMATURE GRAN % 0.4 % (0.00-0.4); Lymphocyte (Absolute #) 1.81 x10^3/uL (1.0-4.6); Lymphocytes % 16.1 % (24.0-44.0); Mean Cell Volume 86.7 fL (78-100); Mean Corpuscular Hgb Concent. 32.3 g/dL (32-36); Monocyte (Absolute #) 0.61 x10^3/uL (0.0-1.3); Monocytes % 5.4 % (0.0-12.0); Neutrophil % 76.7 % (36.0-66.0); Platelet Count 205 x10^3/uL (150-450); Red Blood Count 5.25 x10^6/uL (4.1-5.4); Red Cell Distribution Width 12.3 % (11.5-14.0); White Blood Count 11.2 x10^3/uL (4.0-10.5)
[2023-02-02 23:39] LABS: ALBUMIN 4.2 g/dL (3.5-5.0); ANION GAP 13.6 MEQ/L (5-15); BILIRUBIN,TOTAL 0.9 mg/dL (0.2-1.3); Calcium 9.3 mg/dL (8.4-10.2); Creatinine 1 1.07 mg/dL (0.52-1.04); Potassium 3.9 mmol/L (3.5-5.1); Total Protein 7.1 g/dL (6.3-8.2)
[2023-02-03 00:33] VITALS: BP 100/62; PULSE 72; RESP 14; O2SAT 97
== END 2023-02-03 00:41 | disposition home or self-care (01) ==
LOC: ED 21:56
DX: N39.0 Urinary tract infection, site not specified (principal); R11.2 Nausea with vomiting, unspecified; R19.7 Diarrhea, unspecified; R10.13 Epigastric pain; E11.9 Type 2 diabetes mellitus without complications; Z79.85 Long-term (current) use of injectable non-insulin antidiabetic drugs; Z79.899 Other long term (current) drug therapy; Z28.310 Unvaccinated for COVID-19
CPT/HCPCS: 36000; 36415; 80053; 81001; 83690; 84484; 85025; 87086; 96360; 96372; 99284; J0696; Q0162

== ENCOUNTER 2024-12-14 07:42 | Emergency (ER) | payer BC ==
[2024-12-14 07:59] VITALS: TEMP 96.8
[2024-12-14] MEDS ORDERED: Zofran 4 MG/2 ML VIAL ONE (08:13)
[2024-12-14] MEDS ORDERED: Hydromorphone 1 mg/ml Injection ONE (08:13)
[2024-12-14] MEDS: Zofran 4 MG/2 ML VIAL IV ONE (08:17)
[2024-12-14] MEDS: Hydromorphone 1 mg/ml Injection IV ONE (08:19)
[2024-12-14 08:22] LABS: BASOPHIL % 0.5 % (0.1-1.2); Basophil (Absolute #) 0.04 x10^3/uL (0.01-0.08); Eosinophil (Absolute #) 0.14 x10^3/uL (0.04-0.36); Hematocrit 43.4 % (34.1-44.9); Hemoglobin 13.9 g/dL (11.2-15.7); IMMATURE GRAN # 0.03 x10^3u/L (0.001-0.031); IMMATURE GRAN % 0.4 % (0.001-0.429); Lymphocyte (Absolute #) 2.01 x10^3/uL (1.18-3.74); Mean Corpuscular Hemoglobin 27.0 pg (25.6-32.2); Mean Corpuscular Hgb Concent. 32.0 g/dL (32.2-35.5); Monocyte (Absolute #) 0.52 x10^3/uL (0.24-0.86); NUCLEATED RBC # 0.00 x10^3u/L (0.00-0.012); NUCLEATED RBC % 0.0 % (0.00-0.2); Platelet Count 207 x10^3/uL (182-369); Red Blood Count 5.14 x10^6/uL (3.93-5.22); White Blood Count 8.0 x10^3/uL (3.98-10.04)
[2024-12-14 08:36] LABS: Calcium 9.1 mg/dL (8.4-10.2); Carbon Dioxide 23.0 mmol/L (22-30); Creatinine 1 0.97 mg/dL (0.52-1.04); EST GLOMERULAR FILTRATION RATE 81.6 ML/MIN; Glucose 97.0 mg/dL (74-106); Potassium 4.2 mmol/L (3.5-5.1); SGOT/AST 21.0 U/L (14-36); SGPT/ALT 14.0 U/L (0-35); Total Protein 6.7 g/dL (6.3-8.2)
[2024-12-14 08:41] LABS: HCG SERUM TEST NEGATIVE (NEGATIVE)
--- NOTE | 2024-12-14 08:41 | ERPHSYRPT ---
- History of Present Illness Time Seen by Provider: 12/14/24 08:15 Historian: patient, family Exam Limitations: no limitations Patient Subjective Stated Complaint: patient having vaginal bleeding and severe abdominal pain Triage Nursing Assessment: patient presents to ED today with boyfriend, gait is steady, patient alert and orientedx4, skin warm dry and intact. patient says pain started 3 days ago after sex and she immediately started bleeding, she went to [facility] and they checked her nad gave her tylenol for 5 days for pain and did pelvic exam. chelita does have history of PCOS. they told her her cervix was bleeding, but she is still in lots of pain and having on and off bleeding. Physician History: This is an obese 29-year-old white female patient who has a history of PCOS and arrives by private vehicle accompanied by her boyfriend and is a patient of nurse practitioner Debora with several month history of intermittent lower abdominal pain with radiation into her back. Approximately 3 days ago, after sexual intercourse, the patient immediately had vaginal bleeding. The lower abdominal pain has worsened and she is still having intermittent vaginal bleeding. Patient has been seen by her primary care provider as well as seen at [facility] emergency department yesterday. No radiographic studies have been performed as of yet per her report. Patient has not had any nausea vomiting or diarrhea symptoms. She denies chest pain and shortness of breath. Her test yesterday was negative per her report. Patient has a history of depression, diabetes, gastroesophageal reflux disease and migraine headaches. Timing/Duration: worse (In the last 3 days symptoms have worsened and associated with vaginal bleeding intermittently), other (Lower abdominal pain for several months intermittently) Quality: aching Abdominal Pain Onset Location: RLQ, LLQ, suprapubic Severity of Pain-Max: mild (To moderate) Severity of Pain-Current: mild Modifying Factors: Improves With: nothing Associated Symptoms: denies symptoms Previous symptoms: same symptoms as today, recently seen Allergies/Adverse Reactions: hydrocodone [From Argenta] Adverse Reaction (Intermediate, Verified 02/02/23 22:01) Nausea and Vomiting Home Medications: Ibuprofen 800 mg PO TID 12/14/24 [History] Metformin HCl 500 mg [Glucophage 500 MG] 500 mg PO BIDWM 12/14/24 [History] Hx Tetanus, Diphtheria Vaccination/Date Given: No Hx Influenza Vaccination/Date Given: No Hx Pneumococcal Vaccination/Date Given: No Travel Risk - International Travel Have you traveled outside of the country in past 3 weeks: No - Emerging Infectious Disease Are you exhibiting symptoms associated with any current EIDs: No - Review of Systems Constitutional: No Symptoms Eyes: No Symptoms Ears, Nose, & Throat: No Symptoms Respiratory: No Symptoms Cardiac: No Symptoms Abdominal/Gastrointestinal: Abdominal Pain (Bilateral lower quadrant and suprapubic region) Genitourinary Symptoms: Vaginal Bleeding (Intermittently over the last 3 days) Musculoskeletal: No Symptoms Skin: No Symptoms Neurological: No Symptoms Psychological: No Symptoms Endocrine: No Symptoms Hematologic/Lymphatic: No Symptoms Immunological/Allergic: No Symptoms All Other Systems: Reviewed and Negative - Past Medical History Pertinent Past Medical History: Yes Neurological History: Migraines ENT History: No Pertinent History Cardiac History: No Pertinent History Respiratory History: No Pertinent History Endocrine Medical History: Diabetes Type II Musculoskeletal History: No Pertinent History GI Medical History: GERD, Gallbladder Disease History: No Pertinent History Psycho-Social History: No Pertinent History Female Reproductive Disorders: No Pertinent History Other Medical History: iron def anemia - Past Surgical History Past Surgical History: Yes Neuro Surgical History: No Pertinent History Cardiac: No Pertinent History Respiratory: No Pertinent History Gastrointestinal: Cholecystectomy Genitourinary: No Pertinent History Musculoskeletal: No Pertinent History Female Surgical History: No Pertinent History - Female History Hx Last Menstrual Period: last month Hx Now: No - Social History Smoking Status: Never smoker Exposure to second hand smoke: No Drug Use: none - Social Determinants of Health Will the patient participate in the screening: Declined to provide - Nursing Vital Signs Nursing Vital Signs: Initial Vital Signs Temperature 96.8 F 12/14/24 07:52 Pulse Rate 80 12/14/24 07:52 Respiratory Rate 14 12/14/24 07:52 Blood Pressure 125/88 12/14/24 07:52 O2 Sat by Pulse Oximetry 98 12/14/24 07:52 Pain Scale Pain Intensity 5 - Physical Exam General Appearance: no apparent distress, alert, anxiety, obese Eye Exam: PERRL/EOMI, eyes nml inspection Ears, Nose, Throat Exam: normal ENT inspection, moist mucous membranes Neck Exam: normal inspection, non-tender, supple, full range of motion Respiratory Exam: normal breath sounds, lungs clear, airway intact, No chest tenderness, No respiratory distress Cardiovascular Exam: regular rate/rhythm, normal heart sounds, normal peripheral pulses Gastrointestinal/Abdomen Exam: soft, normal bowel sounds, tenderness (Bilateral lower quadrant and suprapubic region), guarding (Bilateral lower quadrant and suprapubic region to palpation), No rebound Pelvic Exam: not done Rectal Exam: not done Back Exam: normal inspection, normal range of motion, No CVA tenderness, No vertebral tenderness Extremity Exam: normal inspection, normal range of motion, pelvis stable Neurologic Exam: alert, oriented x 3, cooperative, industrial maintenance tech II-XII nml as tested, nml cerebellar function, nml station & gait, sensation nml Skin Exam: normal color, warm, dry Lymphatic Exam: No adenopathy SpO2 Interpretation: normal SpO2: 98 O2 Delivery: Room Air - Course Nursing assessment & vital signs reviewed: Yes Ordered Tests: Active Orders 24 hr Category Date Time Status IV Insertion STAT Care 12/14/24 08:06 Active ABDOMEN AND PELVIS W/0 CONTRAS [CT] Stat Exams 12/14/24 08:07 Completed AMYLASE Stat Lab 12/14/24 08:19 Completed CBC W DIFF Stat Lab 12/14/24 08:19 Completed CMP Stat Lab 12/14/24 08:19 Completed CULTURE,URINE Stat Lab 12/14/24 08:06 Received HCG QUALITATIVE, SERUM Stat Lab 12/14/24 08:19 Completed LIPASE Stat Lab 12/14/24 08:19 Completed UA W/RFX UR CULTURE Stat Lab 12/14/24 08:06 Completed Medication Summary Discontinued Medications Generic Name Dose Route Start Last Admin Trade Name Freq PRN Reason Stop Dose Admin Droperidol 0.625 mg 12/14/24 09:42 12/14/24 10:24 Droperidol 5 Mg/2 Ml Vial IV 12/14/24 09:43 0.625 mg STAT ONE Administration Droperidol Confirm 12/14/24 10:22 Droperidol 5 Mg/2 Ml Vial Administered 12/14/24 10:23 Dose 5 mg .ROUTE .STK-MED ONE Hydromorphone HCl 1 mg 12/14/24 08:06 12/14/24 08:19 Hydromorphone 1 Mg/1ml Inj IV 12/14/24 08:07 1 mg STAT ONE Administration Hydromorphone HCl Confirm 12/14/24 08:13 Hydromorphone 1 Mg/1ml Inj Administered 12/14/24 08:14 Dose 1 mg .ROUTE .STK-MED ONE Sodium Chloride 1,000 mls @ 999 mls/hr 12/14/24 08:06 12/14/24 08:18 Sodium Chloride 0.9% 1000 Ml IV 12/14/24 09:06 999 mls/hr .Q1H1M STA Administration Sodium Chloride Confirm 12/14/24 08:13 Sodium Chloride 0.9% 1000 Ml Administered 12/14/24 08:14 Dose 1,000 mls @ ud .ROUTE .STK-MED ONE Ceftriaxone Sodium 1 gm in 100 mls @ 200 mls/hr 12/14/24 10:26 12/14/24 10:54 Rocephin 1 Gm / 100 Ml Nacl IV 12/14/24 10:55 200 mls/hr STAT ONE 200 mls/hr Administration Ceftriaxone Sodium Confirm 12/14/24 10:52 Rocephin 1 Gm / 100 Ml Nacl Administered 12/14/24 10:53 Dose 1 gm in 100 mls @ ud IV .STK-MED ONE Ondansetron HCl 4 mg 12/14/24 08:06 12/14/24 08:17 Ondansetron Hcl 4 Mg/2 Ml Vial IV 12/14/24 08:07 4 mg STAT ONE Administration Ondansetron HCl Confirm 12/14/24 08:13 Ondansetron Hcl 4 Mg/2 Ml Vial Administered 12/14/24 08:14 Dose 4 mg .ROUTE .STK-MED ONE Lab/Rad Data: Laboratory Result Diagrams 12/14/24 08:19 12/14/24 08:19 Laboratory Results 12/14/24 12/14/24 12/14/24 Range/Units 08:19 08:19 08:19 WBC 8.0 (3.98-10.04) x10^3/uL RBC 5.14 (3.93-5.22) x10^6/uL Hgb 13.9 (11.2-15.7) g/dL Hct 43.4 (34.1-44.9) % MCV 84.4 (79.4-94.8) fL MCH 27.0 (25.6-32.2) pg MCHC 32.0 L (32.2-35.5) g/dL RDW 12.6 (11.7-14.4) % Plt Count 207 (182-369) x10^3/uL MPV 11.4 (9.4-12.3) fL Gran % 65.6 (34.0-71.1) % Immature Gran % (Auto) 0.4 (0.001-0.429) % Nucleat RBC Rel Count 0.0 (0.00-0.2) % Eos # (Auto) 0.14 (0.04-0.36) x10^3/uL Immature Gran # (Auto) 0.03 (0.001-0.031) x10^3u/L Absolute Lymphs (auto) 2.01 (1.18-3.74) x10^3/uL Absolute Monos (auto) 0.52 (0.24-0.86) x10^3/uL Absolute Nucleated RBC 0.00 (0.00-0.012) x10^3u/L Lymphocytes % 25.2 (19.3-51.7) % Monocytes % 6.5 (4.7-12.5) % Eosinophils % 1.8 (0.7-5.8) % Basophils % 0.5 (0.1-1.2) % Absolute Granulocytes 5.25 (1.56-6.13) x10^3/uL Basophils # 0.04 (0.01-0.08) x10^3/uL Sodium 139 (135-145) mmol/L Potassium 4.2 (3.5-5.1) mmol/L Chloride 109 H (98-107) mmol/L Carbon Dioxide 23 (22-30) mmol/L Anion Gap 11.2 (5-15) MEQ/L BUN 11 (7-17) mg/dL Creatinine 0.97 (0.52-1.04) mg/dL Estimated GFR 81.6 ML/MIN Glucose 97 (74-106) mg/dL Calcium 9.1 (8.4-10.2) mg/dL Total Bilirubin 0.70 (0.2-1.3) mg/dL AST 21 (14-36) U/L ALT 14 (0-35) U/L Alkaline Phosphatase 57 (38-126) U/L Serum Total Protein 6.7 (6.3-8.2) g/dL Albumin 4.1 (3.5-5.0) g/dL Amylase 61 (30-110) U/L Lipase 58 (23-300) U/L Serum HCG, Qual NEGATIVE (NEGATIVE) Urine Color (Yellow) Urine Appearance (Clear) Urine pH (4.6-8.0) Ur Specific Fountain (1.005-1.030) Urine Protein (Negative) Urine Glucose (UA) (Negative) mg/dL Urine Ketones (Negative) Urine Blood (Negative) Urine Nitrite (Negative) Urine Bilirubin (Negative) Urine Urobilinogen (0.2) mg/dL Ur Leukocyte Esterase (Negative) U Hyaline Cast (Auto) (0-2) /LPF Urine Microscopic RBC (0-5) /HPF Urine Microscopic WBC (0-5) /HPF Ur Epithelial Cells (None Seen) /HPF Urine Bacteria (None Seen) /HPF Urine Culture Reflexed (NO) 12/14/24 Range/Units 08:06 WBC (3.98-10.04) x10^3/uL RBC (3.93-5.22) x10^6/uL Hgb (11.2-15.7) g/dL Hct (34.1-44.9) % MCV (79.4-94.8) fL MCH (25.6-32.2) pg MCHC (32.2-35.5) g/dL RDW (11.7-14.4) % Plt Count (182-369) x10^3/uL MPV (9.4-12.3) fL Gran % (34.0-71.1) % Immature Gran % (Auto) (0.001-0.429) % Nucleat RBC Rel Count (0.00-0.2) % Eos # (Auto) (0.04-0.36) x10^3/uL Immature Gran # (Auto) (0.001-0.031) x10^3u/L Absolute Lymphs (auto) (1.18-3.74) x10^3/uL Absolute Monos (auto) (0.24-0.86) x10^3/uL Absolute Nucleated RBC (0.00-0.012) x10^3u/L Lymphocytes % (19.3-51.7) % Monocytes % (4.7-12.5) % Eosinophils % (0.7-5.8) % Basophils % (0.1-1.2) % Absolute Granulocytes (1.56-6.13) x10^3/uL Basophils # (0.01-0.08) x10^3/uL Sodium (135-145) mmol/L Potassium (3.5-5.1) mmol/L Chloride (98-107) mmol/L Carbon Dioxide (22-30) mmol/L Anion Gap (5-15) MEQ/L BUN (7-17) mg/dL Creatinine (0.52-1.04) mg/dL Estimated GFR ML/MIN Glucose (74-106) mg/dL Calcium (8.4-10.2) mg/dL Total Bilirubin (0.2-1.3) mg/dL AST (14-36) U/L ALT (0-35) U/L Alkaline Phosphatase (38-126) U/L Serum Total Protein (6.3-8.2) g/dL Albumin (3.5-5.0) g/dL Amylase (30-110) U/L Lipase (23-300) U/L Serum HCG, Qual (NEGATIVE) Urine Color Yellow (Yellow) Urine Appearance Cloudy A (Clear) Urine pH 5.5 (4.6-8.0) Ur Specific Fountain 1.015 (1.005-1.030) Urine Protein Negative (Negative) Urine Glucose (UA) Negative (Negative) mg/dL Urine Ketones Negative (Negative) Urine Blood Large A (Negative) Urine Nitrite Negative (Negative) Urine Bilirubin Negative (Negative) Urine Urobilinogen 0.2 (0.2) mg/dL Ur Leukocyte Esterase Trace A (Negative) U Hyaline Cast (Auto) NONE SEEN (0-2) /LPF Urine Microscopic RBC 0-2 (0-5) /HPF Urine Microscopic WBC 11-20 A (0-5) /HPF Ur Epithelial Cells Many A (None Seen) /HPF Urine Bacteria Moderate A (None Seen) /HPF Urine Culture Reflexed YES (NO) - Progress Progress: improved, pain not gone completely, re-examined Progress Note: 12/14/24 08:39 My medical decision making and the assignment of moderate complexity of this patient's medical issue today is based on review of the patient's past medical history, review the patient's medication list, reviewed patient drug allergy list, history present illness and physical findings on examination. The workup in this patient includes placement of intravenous line, infusion of normal saline solution, CBC, CMP, amylase, lipase, test, urinalysis and CT scan of the abdomen pelvis without contrast. Differential diagnosis includes but is not limited to urinary tract infection, uterine abnormality, ovarian/tubal abnormality 12/14/24 11:07 I interpreted the patient's laboratory data results. Based on laboratory data results, there are no acute, emergent medical issues other than urinary tract infection. CT scan of the abdomen pelvis without contrast was interpreted by the radiologist and I reviewed the impression. The impression states when compared to similar study dated 05/04/2021, there are chronic findings of splenomegaly, degenerative spondylosis. There are no new or acute findings. Counseled pt/family regarding: lab results, diagnosis, need for follow-up, rad results Medical Desision Making - Independent Historian Additional History obtained from: Relative/friend - Diagnostic Testing Diagnostic test were ordered, analyzed, and reviewed by me: Yes Radiological Interpretation: Reviewed by me, Teleradiologist Report - Risk of complications Low Risk: Low risk of morbidity from additional dx testing or treatment The pt has a mod risk of morbidity or mortality based on: Need for prescription drug management - Departure Departure Disposition: Home Clinical Impression: UTI (urinary tract infection), Vaginal bleeding, Nausea Condition: Stable Critical Care Time: No Referrals: NAGI RAWLS, CARMEN [Primary Care Provider, [facility]] - Follow up/PCP as directed Additional Instructions: Drink plenty of fluids. Take your antibiotic as prescribed. Call your primary care provider and your director diversity today, 12/14/2024, to make arrangements for follow-up appointment to be seen in the next 3 to 5 days. Alternate Tylenol and ibuprofen every 4 hours while awake. Prescriptions: Ondansetron ODT 4 MG [Zofran Odt 4 mg] 4 mg PO Q6H PRN PRN #10 tablet PRN Reason: Vomiting Cefdinir 300 mg PO BID #10 cap
[2024-12-14 08:44] LABS: Glucose, Urine Negative (Negative); Protein,Urine Dip Negative (Negative); RBC 0-2 /HPF (0-5)
[2024-12-14] MEDS ORDERED: Inapsine 5 MG/2 ML ONE (10:22)
[2024-12-14] MEDS: Inapsine 5 MG/2 ML IV ONE (10:24)
[2024-12-14 10:29] VITALS: PULSE 60; RESP 14; O2SAT 98
--- NOTE | 2024-12-14 10:49 | XRAY ---
Indication: Vaginal bleeding. Pelvic pain. Multiple contiguous axial images obtained through the abdomen and pelvis without contrast. Comparison: May 04, 2021 Lung bases remain clear. Heart not enlarged. Noncontrasted stomach and bowel loops appear nonobstructed with normal appendix. Again mild diffuse fatty liver, 13.3 cm splenomegaly, and cholecystectomy. No free fluid/air. Remaining liver, pancreas, spleen, adrenal glands, kidneys, ureters, bladder, uterus, and aorta are unremarkable for noncontrast exam. Osseous structures intact again with minimal generative changes throughout spine. Impression: Chronic findings including fatty liver, splenomegaly, and degenerative spondylosis. No new/acute findings on this noncontrast exam.
[2024-12-14] MEDS ORDERED: ROCEPHIN 1 GM / 100 ML NaCl 1 GM/100 ML IVPB IV ONE (10:52)
[2024-12-14] MEDS: ROCEPHIN 1 GM / 100 ML NaCl 1 GM/100 ML IVPB IV ONE (10:54)
[2024-12-14 11:53] VITALS: BP 129/61
== END 2024-12-14 11:53 | disposition home or self-care (01) ==
LOC: ED 07:42
DX: N39.0 Urinary tract infection, site not specified (principal); N93.9 Abnormal uterine and vaginal bleeding, unspecified; R11.0 Nausea; R10.9 Unspecified abdominal pain; E11.9 Type 2 diabetes mellitus without complications; Z79.84 Long term (current) use of oral hypoglycemic drugs; Z79.899 Other long term (current) drug therapy